=== PATIENT | male | born 1975 | race African-American/Black ===

== ENCOUNTER 2020-07-03 12:50 | Outpatient (REF) | payer OTHER, SELFPAY ==
[2020-07-03 14:34] LABS: Alanine Aminotransferase 29 U/L (0-40); Albumin Level 4.2 g/dL (3.5-5.0); Alkaline Phosphatase 69 U/L (39-117); Anion Gap 11 (12-20); Aspartate Amino Transferase 19 U/L (5-37); Blood Urea Nitrogen 14 mg/dL (9-16); Calcium 9.3 mg/dL (8.4-10.2); Carbon Dioxide 28 mmol/L (22-29); Chloride 106 mmol/L (96-108); Cholesterol 200 mg/dL; Estimated Glomerular Filt Rate > 60; Glucose Fasting 87 mg/dL (60-99); HDL Cholesterol 44 mg/dL; LDL Cholesterol Calculated 138 mg/dl; Potassium 4.7 mmol/L (3.3-5.1); Sodium 140 mmol/L (135-145); Total Protein 7.4 g/dL (6.5-8.0); Triglycerides 90 mg/dL
== END 2020-07-03 12:51 | disposition home or self-care (01) ==
LOC: HO.HMGCLDS 12:50
PROVIDERS: PCP Nurse Practitioner Family; Visit Provider Nurse Practitioner Family
DX: I10 Essential (primary) hypertension (principal)
CPT/HCPCS: 36415; 80053; 80061; 84443

== ENCOUNTER 2020-09-09 11:31 | Outpatient (REF) | payer OTHER, SELFPAY ==
[2020-09-09 14:28] LABS: Alanine Aminotransferase 35 U/L (0-40); Albumin Level 4.2 g/dL (3.5-5.0); Alkaline Phosphatase 64 U/L (39-117); Anion Gap 11 (12-20); Aspartate Amino Transferase 21 U/L (5-37); Bilirubin Total 0.9 mg/dL (0.0-1.0); Blood Urea Nitrogen 12 mg/dL (9-16); Calcium 9.2 mg/dL (8.4-10.2); Carbon Dioxide 26 mmol/L (22-29); Chloride 107 mmol/L (96-108); Cholesterol 185 mg/dL; Estimated Glomerular Filt Rate > 60; Glucose Fasting 92 mg/dL (60-99); HDL Cholesterol 50 mg/dL; LDL Cholesterol Calculated 124 mg/dl; Potassium 4.4 mmol/L (3.3-5.1); Sodium 140 mmol/L (135-145); Total Protein 7.2 g/dL (6.5-8.0); Triglycerides 55 mg/dL
[2020-09-09 14:37] LABS: TSH reflex Free T4 0.63 uIU/mL (0.32-4.0)
== END 2020-09-09 11:32 | disposition home or self-care (01) ==
LOC: HO.HMGCLDS 11:31
PROVIDERS: PCP Nurse Practitioner Family; Visit Provider Nurse Practitioner Family
DX: I10 Essential (primary) hypertension (principal)
CPT/HCPCS: 36415; 80053; 80061; 84443

== ENCOUNTER 2020-10-20 12:54 | Outpatient (REF) | payer OTHER, SELFPAY ==
--- NOTE | ~2020-10-20 | XR_ITS ---
EXAMINATION: XR SHOULDER, RIGHT CLINICAL INFORMATION: Pain right shoulder COMPARISON: None TECHNIQUE: AP external rotation, Grashey, scapular Y, and axillary views of the right shoulder. FINDINGS: There is no visible acute fracture or dislocation. The glenohumeral joint space in AC joint space is maintained normal. No bony erosive changes, loose bodies or soft tissue swelling. XR/XR shoulder RT min 2V IMPRESSION: Unremarkable right shoulder exam.
== END 2020-10-20 12:55 | disposition home or self-care (01) ==
LOC: HO.HMGCX 12:54
PROVIDERS: PCP Nurse Practitioner Family; Visit Provider Nurse Practitioner Family
DX: M25.511 Pain in right shoulder (principal)
CPT/HCPCS: 73030

== ENCOUNTER 2021-01-21 13:00 | Outpatient (RCR) | payer OTHER, SELFPAY ==
--- NOTE | 2020-12-24 16:58 | MHC.PT.EP ---
[facility] [place] Office [place] Office [place] Office [address] Bridget Khan [address] [phone] F: [phone] F: [phone] F: [phone] F: [phone] Physical Therapy Plan of Care Date of Evaluation: Date of Surgery: n/a Diagnosis: Pain in R sh Assessment: Pt is a 45/yo M referred to PT for eval/treat of his R shoulder pain. S/S are consistent w/ shoulder dysfunction resulting in disrupted sleep, decreased ability to perform any overhead activity such as reaching for object in high shelf, decreased ability perform ADLs that require overhead shoulder movements like washing his hair and back, as well as putting undershirt or jumpers. Functional limitations mentioned above are secondary to significantly decreased ROM in capsular pattern, decreased strength, scapular compensation, TTP of post deltoid/post GHJ, and pain. Pt is deemed an appropriate candidate to receive skilled PT to address his physical impairments to improve his functional ability. Frequency and Duration: The patient will be seen 2x/wk for 5 wk Short Term Goals: Initiate HEP I w/ evidence of compliance Increase ABD/flexion ROM by 30 degree; initial 60 deg for abd and flex 120 deg Assisted Goals: increase MMT to at least 4+/5 for flex, ER, and abd; initial 4-/5 for all pt will improve their MDC by 2 increment; initial 68/130 or 52%. pt will be able to wash his hair w/ <5/10 pain; initial 910 Treatment Plan: Modalities to reduce pain, spasms and effusion. Manual therapy to restore motion and function. Therapeutic exercise to improve strength and flexibility. Neuromuscular re-education for posture and balance. Therapeutic activities to return to functional activities of daily living. Electronically signed by: Yoel Davis PT Please sign and return to therapist. Thank you for your referral.
--- NOTE | 2021-08-26 13:41 | MHC.PT.DC ---
[facility] [place] Office [place] Office [place] Office [address] Bridget Khan 140 [facility] [phone] F: [phone] F: [phone] F: [phone] F: [phone] Physical Therapy Discharge Report Diagnosis: Pain in R sh Date of Surgery: n/a Date of Evaluation: 12/24/20 Date of Discharge: 01/21/21 Treatments to Date: 8 Cancellations to Date: No Shows to Date: Discharge Status: Patient Elected to Stop Discharge Summary: 01/21: pt continues to show ROM and strength improvement. Test and measure was collected again to assess pt's improvement (see test/measures). pt states, i'm 95% there, easily. pt is independent with his ther'ex - requires minimal cues. cont his POC for next visit. 01/19: pt filled out SPADI to assess his improvement to which he scored 10/130 (7.7%). Within 7 visit, pt has met all of his goals - pt reports that he has been participating in all of his functional activities. At the moment, he does not experience pain at rest and with movement. pt continues to be an active participant at the clinic. Pt performed self mob and capsular stretches and was challenged with isotonic exercises to which pt responded with appropriate fatigue. for next visit, perform another measurement and cont performing his POC to increase ROM and strengthen his scapular/shoulder muscular strength. Electronically signed by: Please sign and return to therapist. Thank you for your referral.
== END 2021-08-26 13:42 | disposition home or self-care (01) ==
LOC: HO.PTCHIC 13:00
PROVIDERS: PCP Nurse Practitioner Family; Visit Provider Nurse Practitioner Family
DX: M25.511 Pain in right shoulder (principal)
CPT/HCPCS: 97110; 97140; 97161

== ENCOUNTER 2021-01-21 14:03 | Outpatient (REF) | payer OTHER, SELFPAY ==
[2021-01-21 16:49] LABS: Appearance Urine CLEAR; Color Urine YELLOW; Glucose Urine UA NEG (NEG); Leukocyte Esterase Urine NEG (NEG); Nitrite Urine NEG (NEG); Specific Gravity - Urine 1.025 (1.005-1.025); Urine Blood NEG (NEG); Urine Ketones NEG (NEG); Urine Protein NEG (NEG-TRACE)
[2021-01-21 16:57] LABS: Alanine Aminotransferase 33 U/L (0-40); Albumin Level 4.4 g/dL (3.5-5.0); Alkaline Phosphatase 70 U/L (39-117); Anion Gap 15 (12-20); Aspartate Amino Transferase 21 U/L (5-37); Bilirubin Total 1.2 mg/dL (0.0-1.0); Blood Urea Nitrogen 11 mg/dL (9-16); Calcium 9.7 mg/dL (8.4-10.2); Carbon Dioxide 22 mmol/L (22-29); Chloride 107 mmol/L (96-108); Cholesterol 207 mg/dL; Estimated Glomerular Filt Rate > 60; Glucose Fasting 101 mg/dL (60-99); HDL Cholesterol 52 mg/dL; LDL Cholesterol Calculated 137 mg/dl; Potassium 4.4 mmol/L (3.3-5.1); Sodium 140 mmol/L (135-145); Total Protein 7.7 g/dL (6.5-8.0); Triglycerides 90 mg/dL
[2021-01-21 17:17] LABS: TSH reflex Free T4 1.04 uIU/mL (0.32-4.0)
== END 2021-01-21 14:04 | disposition home or self-care (01) ==
LOC: HO.HMGCLDS 14:03
PROVIDERS: PCP Nurse Practitioner Family; Visit Provider Nurse Practitioner Family
DX: I10 Essential (primary) hypertension (principal)
CPT/HCPCS: 36415; 80053; 80061; 81003; 84443

== ENCOUNTER 2021-04-14 11:08 | Outpatient (REF) | payer OTHER, SELFPAY ==
[2021-04-14 14:12] LABS: Appearance Urine CLEAR; Color Urine YELLOW; Glucose Urine UA NEG (NEG); Leukocyte Esterase Urine NEG (NEG); Nitrite Urine NEG (NEG); Specific Gravity - Urine 1.025 (1.005-1.025); Urine Blood NEG (NEG); Urine Ketones NEG (NEG); Urine Protein NEG (NEG-TRACE)
[2021-04-14 14:25] LABS: Alanine Aminotransferase 26 U/L (0-40); Albumin Level 4.1 g/dL (3.5-5.0); Alkaline Phosphatase 70 U/L (39-117); Anion Gap 10 (12-20); Aspartate Amino Transferase 20 U/L (5-37); Bilirubin Total 1.1 mg/dL (0.0-1.0); Blood Urea Nitrogen 10 mg/dL (9-16); Calcium 9.8 mg/dL (8.4-10.2); Carbon Dioxide 27 mmol/L (22-29); Chloride 107 mmol/L (96-108); Cholesterol 183 mg/dL; Estimated Glomerular Filt Rate > 60; Glucose Fasting 98 mg/dL (60-99); HDL Cholesterol 48 mg/dL; LDL Cholesterol Calculated 122 mg/dl; Potassium 4.3 mmol/L (3.3-5.1); Sodium 140 mmol/L (135-145); Total Protein 7.2 g/dL (6.5-8.0); Triglycerides 67 mg/dL
[2021-04-14 14:45] LABS: TSH reflex Free T4 0.96 uIU/mL (0.32-4.0)
[2021-04-19 13:31] LABS: Vitamin D 25-OH, D2 <4 ng/mL; Vitamin D 25-OH, D3 29 ng/mL; Vitamin D 25-OH, Total 29 ng/mL (30-100)
== END 2021-04-14 11:09 | disposition home or self-care (01) ==
LOC: HO.HMGCLDS 11:08
PROVIDERS: PCP Nurse Practitioner Family; Visit Provider Nurse Practitioner Family
DX: I10 Essential (primary) hypertension (principal); E55.9 Vitamin D deficiency, unspecified; M54.50 Low back pain, unspecified
CPT/HCPCS: 36415; 80053; 80061; 81003; 82306; 84443

== ENCOUNTER 2021-09-16 09:11 | Outpatient (REF) | payer OTHER, SELFPAY ==
[2021-09-16 11:15] LABS: MANUAL DIFF FLAG NO
[2021-09-16 11:20] LABS: Basophils Percent Auto 0.5 % (0-2); Eosinophils Absolute Auto 0.2 X10*3/uL (0.0-0.4); Hematocrit 43.5 % (42.0-52.0); Hemoglobin 14.1 g/dl (14.0-18.0); Imm Gran Abs Auto 0.02 X10*3/uL (0.00-0.03); Imm Gran Pct Auto 0.3 % (0.0-0.4); Lymphocytes Absolute Auto 1.8 X10*3/uL (1.2-4.9); Lymphocytes Percent Auto 28.9 % (20-40); Mean Corpuscular HGB Conc 32.4 g/dl (31.0-36.0); Mean Corpuscular Hemoglobin 27.6 pg (27.0-33.0); Mean Corpuscular Volume 85.3 fL (80.0-98.0); Monocytes Absolute Auto 0.6 X10*3/uL (0.1-1.2); Monocytes Percent Auto 9.6 % (2-11); Neutrophils Absolute Auto 3.6 x10*3/uL (2.0-8.3); Neutrophils Percent Auto 57.7 % (45-73); Platelet Count 285 X10*3/uL (160-400); Red Cell Distribution Width 12.6 % (11.0-16.0); White Blood Count 6.3 X10*3/uL (4.8-10.8)
[2021-09-16 11:44] LABS: Appearance Urine CLEAR; Color Urine YELLOW; Glucose Urine UA NEG (NEG); Leukocyte Esterase Urine NEG (NEG); Nitrite Urine NEG (NEG); Specific Gravity - Urine 1.025 (1.005-1.025); Urine Blood NEG (NEG); Urine Ketones NEG (NEG); Urine Protein NEG (NEG-TRACE)
[2021-09-16 11:54] LABS: TSH reflex Free T4 1.13 uIU/mL (0.32-4.0)
[2021-09-16 11:58] LABS: Alanine Aminotransferase 23 U/L (0-40); Albumin Level 3.8 g/dL (3.5-5.0); Alkaline Phosphatase 67 U/L (39-117); Anion Gap 10 (12-20); Aspartate Amino Transferase 18 U/L (5-37); Bilirubin Total 1.4 mg/dL (0.0-1.0); Blood Urea Nitrogen 12 mg/dL (9-16); Calcium 9.3 mg/dL (8.4-10.2); Carbon Dioxide 26 mmol/L (22-29); Chloride 107 mmol/L (96-108); Cholesterol 185 mg/dL; Estimated Glomerular Filt Rate > 60; Glucose Fasting 101 mg/dL (60-99); HDL Cholesterol 47 mg/dL; LDL Cholesterol Calculated 124 mg/dl; Potassium 4.4 mmol/L (3.3-5.1); Sodium 139 mmol/L (135-145); Total Protein 6.9 g/dL (6.5-8.0); Triglycerides 72 mg/dL
== END 2021-09-16 09:12 | disposition home or self-care (01) ==
LOC: HO.HMGCLDS 09:11
PROVIDERS: PCP Nurse Practitioner Family; Visit Provider Nurse Practitioner Family
DX: Z00.00 Encounter for general adult medical examination without abnormal findings (principal)
CPT/HCPCS: 36415; 80053; 80061; 81003; 84443; 85025

== ENCOUNTER → 2021-12-08 14:22 | Outpatient (BNVA) | payer OTHER, SELFPAY | PROVIDERS: PCP Nurse Practitioner Family; Visit Provider Nurse Practitioner | DX: Z01.818 Encounter for other preprocedural examination (principal); G47.30 Sleep apnea, unspecified | CPT/HCPCS: 99202 ==

== ENCOUNTER 2022-05-10 09:29 | Day surgery (SDC) | payer OTHER, SELFPAY ==
[2022-05-05 12:22] VITALS: BMI 34.4
--- NOTE | 2022-05-07 10:51 | HO.ANESPROP2 ---
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) Allergic reaction (Acute) Dyslipidemia (Acute) Shoulder pain (Acute) Physical exam (Acute) Migraines (Acute) COVID-19 (Acute) HTN (hypertension) (Acute) Past Medical History Medical History (Updated 05/10/22 @ 09:55 by Jahaira Mccurdy) Alcohol abuse Anxiety Dyslipidemia GERD (gastroesophageal reflux disease) HTN (hypertension) Migraine without aura Obesity Sleep apnea Tobacco use Vestibular migraine Family History Family History Father Unknown family medical history Mother HTN (hypertension) Mental illness in member of household Surgical History Surgical History History of surgery Social History Social History Housing: Apartment Alcohol intake: never Patient Tobacco Use Status: Former Tobacco user Quit Date: 2020 Tobacco use type: Cigarette Cigarette Packs Per Day: 0.5 Cigarettes Per Day: 10.0 Years Smoked: 20 Smoked in Last 30 Days: No e-Cigarette/Vaping Use: Never Used Second Hand Smoke Exposure: No Use of substances other than those prescribed or required for medical reasons: Yes Substance Use Frequency: Daily Are you DNR?: No Advance Directives: No Advance Directives Information Provided: Yes service: No Current occupational status: employed and unemployed Cognitive needs: No Hearing needs: No Vision needs: No Meds Allergies Allergy/AdvReac Type Severity Reaction Status Date / Time acetaminophen [From Tylox] Allergy Severe Hives Verified 05/10/22 09:43 almond Allergy Severe Hives Verified 05/10/22 09:43 oxycodone [From Tylox] Allergy Severe Hives Verified 05/10/22 09:43 Exam Exam Date and Time: May 07, 2022 1051 Height,Weight and Vital Signs: Height 6 ft 1 in Weight 118.388 kg Pertinent Lab Results Pertinent Lab Results: Laboratory Tests 09/16/21 09/16/21 09:25 09:25 WBC 6.3 Hgb 14.1 Hct 43.5 Plt Count 285 Sodium 139 Potassium 4.4 Chloride 107 Carbon Dioxide 26 BUN 12 Creatinine 1.16 Assessment and Plan Assessment Anesthesia Assessment: Chart Reviewed Documented by User: Irais Barr MD 05/10/22 10:29 [facility] Past Medical History Medical History (Updated 05/10/22 @ 09:55 by Jahaira Mccurdy) Alcohol abuse Anxiety Dyslipidemia GERD (gastroesophageal reflux disease) HTN (hypertension) Migraine without aura Obesity Sleep apnea Tobacco use Vestibular migraine Family History Family History Father Unknown family medical history Mother HTN (hypertension) Mental illness in member of household Family history of problems with anesthesia: No Surgical History Surgical History History of surgery History of Problems with Anesthesia: No Social History Social History Housing: Apartment Alcohol intake: never Patient Tobacco Use Status: Former Tobacco user Quit Date: 2020 Tobacco use type: Cigarette Cigarette Packs Per Day: 0.5 Cigarettes Per Day: 10.0 Years Smoked: 20 Smoked in Last 30 Days: No e-Cigarette/Vaping Use: Never Used Second Hand Smoke Exposure: No Use of substances other than those prescribed or required for medical reasons: Yes Substance Use Frequency: Daily Are you DNR?: No Advance Directives: No Advance Directives Information Provided: Yes service: No Current occupational status: employed and unemployed Cognitive needs: No Hearing needs: No Vision needs: No Meds Allergies Allergy/AdvReac Type Severity Reaction Status Date / Time acetaminophen [From Tylox] Allergy Severe Hives Verified 05/10/22 09:43 almond Allergy Severe Hives Verified 05/10/22 09:43 oxycodone [From Tylox] Allergy Severe Hives Verified 05/10/22 09:43 Exam Airway Mallampati Class: II TM Dist: >3cm Neck ROM: Full Heart: rrr Lungs: cta Assessment and Plan Assessment Anesthesia Assessment: Anesthesia Plan Discussed Final Anesthetic Review Family History of Problems with Anesthesia: No History of Problems with Anesthesia: No NPO: Yes ASA Class: III Final Preanesthetic Review: No Changes in Pt Med Stat, Meds/Allgs Chart Reviewed and Consent Obtained/Reviewed Patient Risk: Intermediate Procedure Risk: Intermediate Anesthetic Plan Anesthetic Plan: MAC: Disposition: Standard PACU
[2022-05-10 09:50] VITALS: BMI 33.9
[2022-05-10 09:53] VITALS: BP 145/85; PULSE 62; RESP 16; TEMP 36.5; O2SAT 98
[2022-05-10] MEDS: Lactated Ringers 1,000 ML 100 ML IVCONT (10:10)
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
--- NOTE | 2022-05-10 10:35 | P.BOP_ITS ---
Brief Operative Note Date of Service: 05/10/22 Pre-op diagnosis: colon cancer screening (1st colonoscopy) Post-op diagnosis: other ( COLON POLYPS, DIVERTICULOSIS, HEMORRHOIDS) Procedure: COLONOSCOPY TILL CECUM WITH BIOPSIES AND SNARE POLYPECTOMY Surgeon: Leanna Wyatt MD Anesthesia: MAC Was an [facility] Psychiatrist used for this Procedure?: Yes [facility] Psychiatrist: Marita Vivas Estimated blood loss (mL): 0 Pathology: other (A. transverse colon polyp B. sigmoid polyp) Condition: stable Disposition: PACU
--- NOTE | 2022-05-10 10:35 | W.PM.OPN ---
Operative Note Operative Note Date of Service: 05/10/22 Narrative: Pre-op diagnosis: colon cancer screening (1st colonoscopy) Post-op diagnosis:?other ( COLON POLYPS, DIVERTICULOSIS, HEMORRHOIDS) Surgeon: Leanna Wyatt MD Anesthesia:?MAC COLONOSCOPY TILL CECUM WITH BIOPSIES AND SNARE POLYPECTOMY Consent: Indications for the procedure and potential complications of bleeding, perforation, reaction to medications and missed diagnosis were discussed with the patient and informed consent was obtained. Instrument: Olympus PCF H 190 L variable stiffness pediatric colonoscope Monitoring: Vital signs and clinical assessment, intermittent blood pressure monitoring, continuous EKG monitoring, Pulse oximetry and Carbon Dioxide monitoring were done throughout the procedure. Colon withdrawl time was 25 minutes. Procedure: The patient was placed in the left lateral decubitis position and pre-procedure medications were administered. After a digital rectal examination of the ano-rectum, the video colonoscope was inserted into the rectum and advanced through the colon to the cecum. The colonoscope was slowly withdrawn in a retrograde panoramic fashion and the colon mucosa was carefully examined including a retroflexed view of the rectum. Findings and interventions are described below. Procedure Difficulty: colon was long and tortuous and there was some loop formation. no maneuvers were required. Findings: Terminal Ileum: Not evaluated Cecum: Normal Ascending Colon: Normal Transverse Colon: A 3-4 mm sessile polyp - removed with a cold bx Descending Colon: Normal Sigmoid Colon: A 10 mm sessile polyp removed with a cold snare. Moderate diverticulosis Rectum: Normal Ano-rectum: Moderate internal hemorrhoids Colon preparation: Good in the left colon and fair in the right and transverse colon due to a thin layer of adherent stool which could not be removed despite copious irrigation. No large lesions seen, and smaller polyps could be missed. Impression and Post Procedure Diagnosis: Colonoscopy Findings: Two small to medium sized polyps removed Moderate diverticulosis seen in the sigmoid colon Moderate hemorrhoids on retroflexed exam. Plan: Await pathology results Patient has an appointment on 05/25/22 in the GI Clinic with Melissa Philip NP. Repeat Colonoscopy interval based on path results - in 3 years if polyps are adenomatous and due to suboptimal prep in the right and transverse colon (pt needs dulcolax two tab daily x 2 days prior to colon appt and an adult colonoscope for future colonoscopies). Above findings were reviewed with the patient and colon polyps and diverticulosis handouts were given in the discharge area
[2022-05-10 11:18] VITALS: BP 137/79; PULSE 52; RESP 16; TEMP 36.6; O2SAT 98
[2022-05-10 11:33] VITALS: BP 143/97; PULSE 52; RESP 16; TEMP 36.6; O2SAT 98
== END 2022-05-10 11:59 | disposition home or self-care (01) ==
PROVIDERS: PCP Nurse Practitioner Family; Visit Provider Internal Medicine Gastroenterology
PROC: 0DJD8ZZ Inspection of Lower Intestinal Tract, Via Natural or Artificial Opening Endoscopic (ICD-10-PCS; CPT 45378; principal; 2022-05-10 10:20)
DX: Z12.11 Encounter for screening for malignant neoplasm of colon (principal); D12.3 Benign neoplasm of transverse colon; D12.5 Benign neoplasm of sigmoid colon; K57.30 Diverticulosis of large intestine without perforation or abscess without bleeding; K64.8 Other hemorrhoids; I10 Essential (primary) hypertension; E78.00 Pure hypercholesterolemia, unspecified; G47.33 Obstructive sleep apnea (adult) (pediatric); G43.909 Migraine, unspecified, not intractable, without status migrainosus; F10.10 Alcohol abuse, uncomplicated; Z87.891 Personal history of nicotine dependence
CPT/HCPCS: 45385; 45380; 88305

== ENCOUNTER → 2022-05-25 11:12 | Outpatient (BNVA) | payer OTHER, SELFPAY | PROVIDERS: PCP Nurse Practitioner Family; Visit Provider Nurse Practitioner | DX: K57.30 Diverticulosis of large intestine without perforation or abscess without bleeding (principal); D12.3 Benign neoplasm of transverse colon; D12.5 Benign neoplasm of sigmoid colon; K64.8 Other hemorrhoids; Z98.890 Other specified postprocedural states | CPT/HCPCS: 99212 ==

== ENCOUNTER 2022-09-27 10:12 | Outpatient (REF) | payer OTHER, SELFPAY ==
[2022-09-27 11:15] LABS: MANUAL DIFF FLAG NO
[2022-09-27 11:29] LABS: Appearance Urine Clear; Color Urine Yellow; Glucose Urine UA Negative (Negative); Leukocyte Esterase Urine Negative (Negative); Nitrite Urine Negative (Negative); PH 6.5 (5.0-9.0); Specific Gravity - Urine 1.025 (1.005-1.025); Urine Blood Negative (Negative); Urine Ketones Negative (Negative); Urine Protein Negative (Neg-Trace)
[2022-09-27 11:32] LABS: Basophils Percent Auto 0.3 % (0-2); Eosinophils Absolute Auto 0.2 X10*3/uL (0.0-0.4); Eosinophils Percent Auto 2.5 % (0-4); Hematocrit 47.1 % (42.0-52.0); Hemoglobin 15.1 g/dl (14.0-18.0); Imm Gran Abs Auto 0.02 X10*3/uL (0.00-0.03); Imm Gran Pct Auto 0.3 % (0.0-0.4); Lymphocytes Absolute Auto 1.4 X10*3/uL (1.2-4.9); Lymphocytes Percent Auto 23.4 % (20-40); Mean Corpuscular HGB Conc 32.1 g/dl (31.0-36.0); Mean Corpuscular Hemoglobin 27.1 pg (27.0-33.0); Mean Corpuscular Volume 84.4 fL (80.0-98.0); Monocytes Absolute Auto 0.6 X10*3/uL (0.1-1.2); Monocytes Percent Auto 9.5 % (2-11); Neutrophils Absolute Auto 3.8 x10*3/uL (2.0-8.3); Platelet Count 273 X10*3/uL (160-400); Red Blood Count 5.58 X10*6/uL (4.60-5.80); Red Cell Distribution Width 12.5 % (11.0-16.0); White Blood Count 5.9 X10*3/uL (4.8-10.8)
[2022-09-27 12:10] LABS: Alanine Aminotransferase 25 U/L (0-40); Albumin Level 4.4 g/dL (3.5-5.0); Alkaline Phosphatase 74 U/L (39-117); Anion Gap 12 (12-20); Aspartate Amino Transferase 20 U/L (5-37); Bilirubin Total 1.3 mg/dL (0.0-1.0); Blood Urea Nitrogen 14 mg/dL (9-16); Calcium 9.9 mg/dL (8.4-10.2); Carbon Dioxide 29 mmol/L (22-29); Chloride 104 mmol/L (96-108); Cholesterol 204 mg/dL; Estimated Glomerular Filt Rate > 60; Glucose Fasting 99 mg/dL (60-99); HDL Cholesterol 49 mg/dL; LDL Cholesterol Calculated 141 mg/dl; Potassium 4.4 mmol/L (3.3-5.1); Sodium 141 mmol/L (135-145); TSH reflex Free T4 0.55 uIU/mL (0.32-4.0); Total Protein 7.8 g/dL (6.5-8.0); Triglycerides 73 mg/dL
== END 2022-09-27 10:13 | disposition home or self-care (01) ==
LOC: HO.HMGCLDS 10:12
PROVIDERS: PCP Nurse Practitioner Family; Visit Provider Nurse Practitioner Family
DX: Z00.00 Encounter for general adult medical examination without abnormal findings (principal)
CPT/HCPCS: 36415; 80053; 80061; 81003; 84443; 85025

== ENCOUNTER 2022-12-23 09:31 | Outpatient (AMB) | payer OTHER, SELFPAY ==
--- NOTE | 2022-12-23 09:35 | MHC.PC.OV ---
Vital Signs 12/23/22 09:36 12/23/22 11:34 Height 6 ft Weight 261 lb 2 oz BMI 35.4 BP 118/84 Blood Pressure Location Rt brachial Position Sitting Pulse 47 L 64 Pulse Source Pulse Oximeter Pulse Oximetry (%) 97 Oxygen Delivery Method Room Air Intake Visit Reasons: 3m follow up HTN Allergies acetaminophen [From Tylox] Allergy (Severe, Verified 12/23/22 09:37) Hives almond Allergy (Severe, Verified 12/23/22 09:37) Hives oxycodone [From Tylox] Allergy (Severe, Verified 12/23/22 09:37) Hives lisinopril Adverse Reaction (Severe, Verified 12/23/22 09:37) Angioedema amlodipine Adverse Reaction (Intermediate, Verified 12/23/22 09:37) Chest Pain Tobacco use date assessed: 12/23/22 Dental Screening Dental Screen Date: 12/23/22 Did you have a dental visit in the last 12 months?: Yes Did you have a dental problem in the last 6 months where you did not have access to dental care?: No Was dental information given to patient?: Patient has dentist HPI 3m follow up HTN HPI Details HTN: Blood pressure is stable, managed with hydrochlorothiazide 12.5mg. Pt reports excessive cardio and weight training exercises, bradycardia noted, BP stable. Denies chest pain, shortness of breath, headache, dizziness, and blurred vision. PFSH Medical History Alcohol abuse Anxiety Dyslipidemia GERD (gastroesophageal reflux disease) HTN (hypertension) Migraine without aura Obesity Sleep apnea Tobacco use Vestibular migraine Surgical History H/O colonoscopy History of surgery Family History Father Unknown family medical history Mother HTN (hypertension) Mental illness in member of household Social History Housing: Apartment Alcohol intake: never Patient Tobacco Use Status: Former Tobacco user Quit Date: 2020 Tobacco use type: Cigarette Cigarette Packs Per Day: 0.5 Cigarettes Per Day: 10.0 Years Smoked: 20 Packs Per Year: 10 Packs per year/per ci.00 e-Cigarette/Vaping Use: Never Used Second Hand Smoke Exposure: No service: No Current occupational status: employed and unemployed Cognitive needs: No Hearing needs: No Vision needs: No Questionnaire Thrive Questionnaire Date Thrive assessed: 09/13/22 SREE-7 AMB Questionnaire SREE-7 Date SREE - 7 assessed: 09/13/22 Source: Developed by Drs. Zack Pereira, Rosa Maria Baumann, Sheng Blackmon and colleagues, with an educational jason from [employer]. Review of Systems Const Reports as per HPI Physical exam (Primary Care) Vital Signs: Last Vital Signs Pulse 47 L 12/23/22 09:36 BP 118/84 12/23/22 09:36 Pulse Ox 97 12/23/22 09:36 Oxygen Delivery Method Room Air 12/23/22 09:36 BMI result Body Mass Index 35.4 Tobacco/Smoking Status: Tobacco use Status Tobacco use date assessed 12/23/22 12/23/22 09:40 Patient Tobacco Use Status Former Tobacco user 12/23/22 09:40 Tobacco use type Cigarette 12/23/22 09:40 e-Cigarette/Vaping Use Never Used 12/23/22 09:40 Thrive Assessment: Date of Thrive Assessment Date Thrive assessed 09/13/22 12/23/22 09:40 Const General: cooperative Nutritional Appearance: obese Orientation/consciousness: patient oriented x3 Resp Effort & Inspection: normal respiratory effort Auscultation: clear to auscultation bilaterally Cardio Rate: regular rate Rhythm: regular rhythm Heart sounds: S1 normal heart sound present and S2 normal heart sound present Neuro General: patient oriented x3 Extrem Right lower extremity: no edema Left lower extremity: no edema Psych Appearance: grossly normal Mental Status: mental status grossly normal Speech and movement: Normal speech and movement present Affect: normal affect Attitude: cooperative Thought process: Normal thought process present Thought content: Normal thought content present Insight: Good insight present (Psych) Judgement: Good judgement present (Psych) Assessment and Plan Assessment & Plan (1) HTN (hypertension): Code(s): I10 - Essential (primary) hypertension Qualifiers: Hypertension type: essential hypertension Qualified Code(s): I10 - Essential (primary) hypertension Plan: Labs ordered Plan The patient agreed to the use of a medical staff services coordinator for this encounter. Scribed for NORMA Kingsley- by Beatrice Mcgrath, medical staff services coordinator, on 12/23/2022 at 09:45 EST. Orders: Orders Comprehensive [place]. Panel Fast Today I10 - Essential (primary) hypertension Lipid Panel Today I10 - Essential (primary) hypertension TSH reflex Free T4 Today I10 - Essential (primary) hypertension Complete Blood Count Auto Diff Today I10 - Essential (primary) hypertension Coding Level of Care Code Est Pt Level 3 (24133) Diagnoses HTN (hypertension) I10 Hypertension type: essential hypertension
[2022-12-23 09:36] VITALS: BP 118/84; PULSE 47; O2SAT 97; BMI 35.4
[2022-12-23 11:34] VITALS: PULSE 64
== END 2022-12-23 11:23 | disposition home or self-care (01) ==
LOC: HO.HMGC 09:31
PROVIDERS: PCP Nurse Practitioner Family; Visit Provider Nurse Practitioner Family
DX: I10 Essential (primary) hypertension (principal)
CPT/HCPCS: 99213

== ENCOUNTER 2023-02-01 13:54 | Outpatient (AMB) | payer OTHER, SELFPAY ==
--- NOTE | 2023-02-01 15:15 | MHC.OFFWIV ---
Intake Vital Signs 02/01/23 15:16 Weight 265 lb BP 130/80 Blood Pressure Location Rt brachial Position Sitting Pulse 76 Pulse Source Pulse Oximeter Pulse Oximetry (%) 98 Oxygen Delivery Method Room Air Intake Visit Reasons: Est/hemorrhoids issues Intake Note: Patient here for blood in stool and little sharp pains in stomach that started yesterday. Patient Tobacco Use Status: Former Tobacco user Quit Date: 2020 Allergies acetaminophen [From Tylox] Allergy (Severe, Verified 02/01/23 16:07) Hives almond Allergy (Severe, Verified 02/01/23 16:07) Hives oxycodone [From Tylox] Allergy (Severe, Verified 02/01/23 16:07) Hives lisinopril Adverse Reaction (Severe, Verified 02/01/23 16:07) Angioedema amlodipine Adverse Reaction (Intermediate, Verified 02/01/23 16:07) Chest Pain Medication List - Last Reconciled 02/01/23 by Cj Mann MD hydrochlorothiazide 12.5 mg PO DAILY hydrocortisone acetate (Anusol-HC) 25 mg MT BEDTIME Do you need a note to return to daycare/school/sports/work: No HPI Est/hemorrhoids issues HPI Details 47-year-old male presents to the office for a sick visit. Patient is reporting that he is passing bright lead blood from the rectum. It is mixed with stool. Patient has history of hemorrhoids in the past. He has had colonoscopy recently and 2 polyps were removed. He has been diagnosed with hemorrhoids. [facility] Medical History Alcohol abuse Anxiety Dyslipidemia GERD (gastroesophageal reflux disease) HTN (hypertension) Migraine without aura Obesity Sleep apnea Tobacco use Vestibular migraine Surgical History H/O colonoscopy History of surgery Family History Father Unknown family medical history Mother HTN (hypertension) Mental illness in member of household Social History Housing: Apartment Alcohol intake: never Patient Tobacco Use Status: Former Tobacco user Quit Date: 2020 Tobacco use type: Cigarette Cigarette Packs Per Day: 0.5 Cigarettes Per Day: 10.0 Years Smoked: 20 e-Cigarette/Vaping Use: Never Used Second Hand Smoke Exposure: No service: No Current occupational status: employed and unemployed Cognitive needs: No Hearing needs: No Vision needs: No Physical Exam Vital Signs: Last Vital Signs Pulse 76 02/01/23 15:16 BP 130/80 02/01/23 15:16 Pulse Ox 98 02/01/23 15:16 Oxygen Delivery Method Room Air 02/01/23 15:16 Const General: cooperative, healthy appearing and comfortable Assessment & Plan Assessment & Plan (1) Hemorrhoids: Code(s): K64.9 - Unspecified hemorrhoids Plan: Suppositories prescribed. If symptoms persist to follow-up here. Medications: New hydrocortisone acetate (Anusol-HC) 25 mg MT BEDTIME 12 ea 0RF Coding Level of Care Code Est Pt Level 3 (09039) Diagnoses Hemorrhoids K64.9
[2023-02-01 15:16] VITALS: BP 130/80; PULSE 76; O2SAT 98
== END 2023-02-01 16:23 | disposition home or self-care (01) ==
PROVIDERS: PCP Nurse Practitioner Family; Visit Provider Internal Medicine
DX: K64.9 Unspecified hemorrhoids (principal)
CPT/HCPCS: 99213

== ENCOUNTER 2023-05-18 11:49 | Outpatient (AMB) | payer OTHER, SELFPAY ==
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
[2023-05-18 11:55] VITALS: BP 130/80; PULSE 64; TEMP 37.1; O2SAT 97; BMI 35.4
== END 2023-05-18 13:01 | disposition home or self-care (01) ==
PROVIDERS: PCP Nurse Practitioner Family; Visit Provider Internal Medicine
DX: I10 Essential (primary) hypertension (principal); R51.9 Headache, unspecified
CPT/HCPCS: 99214

== ENCOUNTER 2023-05-18 12:19 | Outpatient (REF) | payer OTHER, SELFPAY ==
[2023-05-18 13:44] LABS: MANUAL DIFF FLAG NO
[2023-05-18 14:07] LABS: Basophils Percent Auto 0.2 % (0-2); Eosinophils Absolute Auto 0.2 X10*3/uL (0.0-0.4); Hematocrit 48.4 % (42.0-52.0); Hemoglobin 15.7 g/dl (14.0-18.0); Imm Gran Abs Auto 0.03 X10*3/uL (0.00-0.03); Imm Gran Pct Auto 0.4 % (0.0-0.4); Lymphocytes Absolute Auto 1.8 X10*3/uL (1.2-4.9); Lymphocytes Percent Auto 20.9 % (20-40); Mean Corpuscular HGB Conc 32.4 g/dl (31.0-36.0); Mean Corpuscular Hemoglobin 27.5 pg (27.0-33.0); Mean Corpuscular Volume 84.8 fL (80.0-98.0); Mean Platelet Volume 11.4 fL (9.4-12.4); Monocytes Absolute Auto 0.7 X10*3/uL (0.1-1.2); Monocytes Percent Auto 7.8 % (2-11); Neutrophils Absolute Auto 5.8 x10*3/uL (2.0-8.3); Neutrophils Percent Auto 68.7 % (45-73); Platelet Count 275 X10*3/uL (160-400); Red Blood Count 5.71 X10*6/uL (4.60-5.80); Red Cell Distribution Width 12.3 % (11.0-16.0); White Blood Count 8.5 X10*3/uL (4.8-10.8)
[2023-05-18 14:12] LABS: Alanine Aminotransferase 30 U/L (0-40); Albumin Level 4.4 g/dL (3.5-5.0); Alkaline Phosphatase 73 U/L (39-117); Anion Gap 12 (12-20); Aspartate Amino Transferase 21 U/L (5-37); Bilirubin Total 1.2 mg/dL (0.0-1.0); Blood Urea Nitrogen 13 mg/dL (9-16); Calcium 9.8 mg/dL (8.4-10.2); Carbon Dioxide 27 mmol/L (22-29); Chloride 102 mmol/L (96-108); Estimated Glomerular Filt Rate 59; Glucose Random 97 mg/dL (60-115); Potassium 3.9 mmol/L (3.3-5.1); Sodium 137 mmol/L (135-145); Total Protein 8.4 g/dL (6.5-8.0)
[2023-05-20 10:44] LABS: LDL Cholesterol Direct 161 mg/dL (<100)
== END 2023-05-18 12:20 | disposition home or self-care (01) ==
LOC: HO.HMGCLDS 12:19
PROVIDERS: PCP Nurse Practitioner Family; Visit Provider Internal Medicine
DX: I10 Essential (primary) hypertension (principal)
CPT/HCPCS: 36415; 80053; 83721; 85025

== ENCOUNTER 2023-07-28 12:17 | Outpatient (REF) | payer OTHER, SELFPAY ==
[2023-07-28 12:57] LABS: MANUAL DIFF FLAG NO
[2023-07-28 13:09] LABS: Basophils Percent Auto 0.3 % (0-2); Eosinophils Absolute Auto 0.1 X10*3/uL (0.0-0.4); Eosinophils Percent Auto 1.7 % (0-4); Hematocrit 47.8 % (42.0-52.0); Hemoglobin 15.6 g/dl (14.0-18.0); Imm Gran Abs Auto 0.03 X10*3/uL (0.00-0.03); Imm Gran Pct Auto 0.5 % (0.0-0.4); Lymphocytes Absolute Auto 1.6 X10*3/uL (1.2-4.9); Lymphocytes Percent Auto 24.5 % (20-40); Mean Corpuscular HGB Conc 32.6 g/dl (31.0-36.0); Mean Corpuscular Hemoglobin 27.5 pg (27.0-33.0); Mean Corpuscular Volume 84.2 fL (80.0-98.0); Mean Platelet Volume 10.7 fL (9.4-12.4); Monocytes Absolute Auto 0.5 X10*3/uL (0.1-1.2); Monocytes Percent Auto 8.2 % (2-11); Neutrophils Absolute Auto 4.3 x10*3/uL (2.0-8.3); Neutrophils Percent Auto 64.8 % (45-73); Platelet Count 330 X10*3/uL (160-400); Red Blood Count 5.68 X10*6/uL (4.60-5.80); Red Cell Distribution Width 12.3 % (11.0-16.0); White Blood Count 6.6 X10*3/uL (4.8-10.8)
[2023-07-28 13:49] LABS: Alanine Aminotransferase 26 U/L (0-40); Albumin Level 4.1 g/dL (3.5-5.0); Alkaline Phosphatase 76 U/L (39-117); Anion Gap 9 (12-20); Aspartate Amino Transferase 20 U/L (5-37); Blood Urea Nitrogen 11 mg/dL (9-16); Calcium 9.5 mg/dL (8.4-10.2); Carbon Dioxide 31 mmol/L (22-29); Chloride 103 mmol/L (96-108); Cholesterol 200 mg/dL (<200); Estimated Glomerular Filt Rate > 60; Glucose Fasting 95 mg/dL (60-99); HDL Cholesterol 55 mg/dL (>40); LDL Cholesterol Calculated 130 mg/dL (<100); Potassium 3.7 mmol/L (3.3-5.1); Sodium 139 mmol/L (135-145); Triglycerides 76 mg/dL (<150)
[2023-07-28 14:07] LABS: TSH reflex Free T4 0.81 uIU/mL (0.32-4.0)
== END 2023-07-28 12:18 | disposition home or self-care (01) ==
LOC: HO.HMGCLDS 12:17
PROVIDERS: PCP Nurse Practitioner Family; Visit Provider Nurse Practitioner Family
DX: E78.5 Hyperlipidemia, unspecified (principal); I10 Essential (primary) hypertension
CPT/HCPCS: 36415; 80053; 80061; 84443; 85025

== ENCOUNTER 2023-10-11 15:07 | Outpatient (AMB) | payer OTHER, SELFPAY ==
[2023-10-11 15:09] VITALS: BP 128/80; PULSE 70; TEMP 36.8; O2SAT 97; BMI 35.4
--- NOTE | 2023-10-11 15:09 | AM.OFFWIN_ITS ---
Intake Vital Signs 10/11/23 15:09 Height 6 ft Weight 261 lb BMI 35.4 BP 128/80 Blood Pressure Location Rt brachial Position Sitting Pulse 70 Pulse Source Pulse Oximeter Temp 98.2 F Temp Source Oral Pulse Oximetry (%) 97 Oxygen Delivery Method Room Air Intake Visit Reasons: EP ?ear infection, bilateral Intake Note: pt is here for ear infection bilateral, pt states he feels his ears are blocked Patient Tobacco Use Status: Former Tobacco user Allergies acetaminophen [From Tylox] Allergy (Severe, Verified 10/11/23 15:10) Hives almond Allergy (Severe, Verified 10/11/23 15:10) Hives oxycodone [From Tylox] Allergy (Severe, Verified 10/11/23 15:10) Hives lisinopril Adverse Reaction (Severe, Verified 10/11/23 15:10) Angioedema amlodipine Adverse Reaction (Intermediate, Verified 10/11/23 15:10) Chest Pain Do you need a note to return to daycare/school/sports/work: No HPI HPI Comments History of Present Illness Details Patient is a 48yo M who presents with bilateral ear blockage x few months No drainage from ears No pain 0/10 He has not tried anything He states 1 year ago he had a beatle in L ear and it got out but feels like issues since No cold symptoms PFSH Medical History Alcohol abuse Anxiety Migraine without aura Obesity HTN (hypertension) Vestibular migraine GERD (gastroesophageal reflux disease) Dyslipidemia Sleep apnea Tobacco use Surgical History H/O colonoscopy History of surgery Family History Father Unknown family medical history Mother HTN (hypertension) Mental illness in member of household Social History Housing: Apartment Alcohol intake: never Patient Tobacco Use Status: Former Tobacco user Tobacco use type: Cigarette Cigarette Packs Per Day: 0.5 Cigarettes Per Day: 10.0 Years Smoked: 20 e-Cigarette/Vaping Use: Never Used Second Hand Smoke Exposure: No service: No Current occupational status: employed and unemployed Cognitive needs: No Hearing needs: No Vision needs: No Review of Systems Const Denies chills and Denies fever(s) ENT Denies ear discharge, Denies otalgia (but + blocked hearing intermittently bilaterally), Denies nasal discharge, Denies sinus pressure and Denies sore throat Resp Denies cough Physical Exam Vital Signs: Last Vital Signs Temp 98.2 F 10/11/23 15:09 Pulse 70 10/11/23 15:09 BP 128/80 10/11/23 15:09 Pulse Ox 97 10/11/23 15:09 Oxygen Delivery Method Room Air 10/11/23 15:09 BMI result Body Mass Index 35.4 General: Non-toxic, NAD. Speaking full sentences. Skin: Warm dry throughout Eye: EOMI HENT: Airway patent. Uvula midline. No pharyngeal erythema or edema. No PEWTER FINISHER. Bilateral canals clear with minimal cerumen. TM non-erythematous, non-bulging. No TM perforation or hemotympanum noted. Respiratory: No respiratory distress MSK: Full ROM extremities. Neurology: A/O. No aphasia or facial droop. Gait without abnormality Psych: Good mood and affect Assessment & Plan Assessment & Plan (1) Decreased hearing: Code(s): H91.90 - Unspecified hearing loss, unspecified ear Qualifiers: Laterality: bilateral Qualified Code(s): H91.93 - Unspecified hearing loss, bilateral Plan: Patient seen and evaluated. No OM or OE No FB Verbal consent obtained and curette used to remove the small amount of cerumen there was bilaterally. No complaints and pt tolerated well. TMs without infection, perforation or abnormality ENT follow up referral given Patient gave verbal understanding and had no additional questions or concerns at time of discharge All questions answered Orders: Referrals Ear/Nose/Throat Referral H91.90 - Unspecified hearing loss, unspecified ear Coding Level of Care Code Est Pt Level 3 (48848) Diagnoses Decreased hearing of both ears H91.93 Laterality: bilateral
== END 2023-10-11 16:22 | disposition home or self-care (01) ==
PROVIDERS: PCP Nurse Practitioner Family; Visit Provider Physician Assistant
DX: H91.93 Unspecified hearing loss, bilateral (principal)
CPT/HCPCS: 99213

== ENCOUNTER 2023-11-11 12:06 | Outpatient (REF) | payer OTHER, SELFPAY ==
[2023-11-11 20:25] LABS: Alanine Aminotransferase 38 U/L (0-40); Albumin Level 4.5 g/dL (3.5-5.0); Alkaline Phosphatase 75 U/L (39-117); Anion Gap 15 (12-20); Aspartate Amino Transferase 28 U/L (5-37); Blood Urea Nitrogen 11 mg/dL (9-16); Carbon Dioxide 26 mmol/L (22-29); Chloride 103 mmol/L (96-108); Cholesterol 207 mg/dL (<200); Estimated Glomerular Filt Rate > 60; Glucose Fasting 101 mg/dL (60-99); HDL Cholesterol 52 mg/dL (>40); LDL Cholesterol Calculated 135 mg/dL (<100); Sodium 140 mmol/L (135-145); Total Protein 8.2 g/dL (6.5-8.0); Triglycerides 101 mg/dL (<150)
== END 2023-11-11 12:07 | disposition home or self-care (01) ==
LOC: HO.HMGCLDS 12:06
PROVIDERS: PCP Nurse Practitioner Family; Visit Provider Nurse Practitioner Family
DX: I10 Essential (primary) hypertension (principal)
CPT/HCPCS: 36415; 80053; 80061

== ENCOUNTER 2023-11-14 12:59 | Outpatient (AMB) | payer OTHER, SELFPAY ==
[2023-11-14 13:02] VITALS: BP 126/74; PULSE 55; O2SAT 96; BMI 34.7
--- NOTE | 2023-11-14 13:02 | MHC.PC.OV ---
Vital Signs 11/14/23 13:02 Height 6 ft Weight 256 lb 4 oz BMI 34.7 BP 126/74 Blood Pressure Location Lt brachial Position Sitting Pulse 55 Pulse Source Pulse Oximeter Pulse Oximetry (%) 96 Oxygen Delivery Method Room Air Intake Visit Reasons: PE Allergies acetaminophen [From Tylox] Allergy (Severe, Verified 11/14/23 13:22) Hives almond Allergy (Severe, Verified 11/14/23 13:22) Hives oxycodone [From Tylox] Allergy (Severe, Verified 11/14/23 13:22) Hives lisinopril Adverse Reaction (Severe, Verified 11/14/23 13:22) Angioedema amlodipine Adverse Reaction (Intermediate, Verified 11/14/23 13:22) Chest Pain Medication List - Last Reconciled 11/14/23 by AMIE Hall hydrochlorothiazide 25 mg PO DAILY hydrochlorothiazide 25 mg PO DAILY 90 days Tobacco use date assessed: 11/14/23 Dental Screening Dental Screen Date: 11/14/23 Did you have a dental visit in the last 12 months?: Yes Did you have a dental problem in the last 6 months where you did not have access to dental care?: No Was dental information given to patient?: Patient has dentist HPI PE HPI Details Pt is here for a PE. Will order labs. Colon screen is up to date. Due for PSA in the near future, will order. Denies dribbling with urination, weak stream, and frequent nocturia. Pt c/o leg cramps. He reports that these occur mostly during the day. Recommended increased fluid/electrolyte intake. PFSH Medical History Alcohol abuse Anxiety Migraine without aura Obesity HTN (hypertension) Vestibular migraine GERD (gastroesophageal reflux disease) Dyslipidemia Sleep apnea Tobacco use Surgical History H/O colonoscopy History of surgery Family History Father Unknown family medical history Mother HTN (hypertension) Mental illness in member of household Social History Housing: Apartment Alcohol intake: never Patient Tobacco Use Status: Former Tobacco user Tobacco use type: Cigarette Cigarette Packs Per Day: 0.5 Cigarettes Per Day: 10.0 Years Smoked: 20 e-Cigarette/Vaping Use: Never Used Second Hand Smoke Exposure: No service: No Current occupational status: employed and unemployed Cognitive needs: No Hearing needs: No Vision needs: No Questionnaire PHQ-9 Over the last 2 weeks, how often have you been bothered by any of the following problems? 1. Little interest or pleasure in doing things: not at all 2. Feeling down, depressed, or hopeless: not at all 3. Trouble falling or staying asleep, or sleeping too much: not at all 4. Feeling tired or having little energy: not at all 5. Poor appetite or overeating: not at all 6. Feeling bad about yourself - or that you are a failure or have let yourself or your family down: not at all 7. Trouble concentrating on things, such as reading the newspaper or watching television: not at all 8. Moving or speaking so slowly that other people could have noticed. Or the opposite - being so fidgety or restless that you have been moving around a lot more than usual: not at all 9. Thoughts that you would be better off or of hurting yourself in some way: not at all Total score: 0 Depression Screening Interpretation: Negative Depression Screening Done: Yes 47030 - PHQ-9 Billing: Yes Source: Developed by Drs. Zack Pereira, Rosa Maria Baumann, Sheng Blackmon and colleagues, with an educational jason from [employer]. Thrive Questionnaire Date Thrive assessed: 11/14/23 I am a: Patient What is your living situation today?: I have a steady place to live Within the past 12 months, did the food you bought not last and you didn't have the money to get more?: Sometimes True Within the past 12 months, did you worry whether your food would run out before you got money to buy more?: Sometimes True Do you have trouble paying for medicines?: Yes Do you have trouble getting transportation to medical appointments?: No Do you have trouble paying your heating and electricity bill?: I choose not to answer this question Do you have trouble taking care of your child, family member or friend?: I choose not to answer this question Do you have trouble with day-to-day activities such as bathing, preparing meals, shopping, managing finances, etc.?: No Are you currently unemployed and looking for a job?: Yes Are you interested in more education?: Yes Please select the resources that you would like help with: Food Currently or been in a relationship where the following occur: I choose not to answer THRIVE Score: 2 AUDIT C Alcohol Use Questionnaire (AUDIT-C) 1. How often do you have a drink containing alcohol?: 2-4 times a month 2. How many drinks containing alcohol do you have on a typical day when you are drinking?: 1 or 2 3. How often do you have six or more drinks on one occasion?: Never Total Score: 2 Score Reviewed/Action Taken: Yes SREE-7 AMB Questionnaire SREE-7 Date SREE - 7 assessed: 11/14/23 Feeling nervous, anxious, or on edge: 1 = Several days Not being able to stop or control worryin = Several days Worrying too much about different things: 1 = Several days Trouble relaxin = Not at all Being so restless that it is hard to sit still: 0 = Not at all Becoming easily annoyed or irritable: 1 = Several days Feeling afraid as if something awful might happen: 1 = Several days Total SREE-7 score (0-4 normal; 5-9 mild; 10-14 moderate; 15-21 severe): 5 Source: Developed by Drs. Zack Pereira, Rosa Maria Baumann, Sheng Blackmon and colleagues, with an educational jason from [employer]. SREE-7 Assessment Billing SREE-7 Assessment Tool: SREE-7 Assessment 37192 Review of Systems Const Denies chills and Denies fever(s) Eyes Denies blurry vision ENT Denies vertigo, Denies dizziness and Denies sore throat Card Denies chest pain at rest, Denies chest pain with activity, Denies diaphoresis, Denies dyspnea and Denies dyspnea on exertion Resp Denies cough, Denies dyspnea, Denies dyspnea on exertion and Denies wheezing GI Denies abdominal pain, Denies melena, Denies hematochezia, Denies constipation, Denies diarrhea and Denies loose stools Denies hematuria Musc Denies numbness and Denies tingling Skin/Breast Denies lesions Neuro Denies vertigo, Denies dizziness, Denies numbness and Denies tingling Psych Denies anxiety, Denies depression, Denies homicidal ideation, Denies suicidal ideation and Denies other (substance abuse) Aller/Immun Denies wheezing Physical exam (Primary Care) Vital Signs: Last Vital Signs Pulse 55 11/14/23 13:02 BP 126/74 11/14/23 13:02 Pulse Ox 96 11/14/23 13:02 Oxygen Delivery Method Room Air 11/14/23 13:02 BMI result Body Mass Index 34.7 Tobacco/Smoking Status: Tobacco use Status Tobacco use date assessed 11/14/23 11/14/23 13:04 Patient Tobacco Use Status Former Tobacco user 11/14/23 13:04 Tobacco use type Cigarette 11/14/23 13:04 e-Cigarette/Vaping Use Never Used 11/14/23 13:04 PHQ-9: PHQ-9 Score PHQ-9: Total score 0 11/14/23 13:04 Depression Screening Interpretation: Negative Thrive Assessment: Date of Thrive Assessment Date Thrive assessed 11/14/23 11/14/23 13:04 Currently or been in a relationship where the following occur: I choose not to answer Const General: cooperative Nutritional Appearance: well nourished Orientation/consciousness: patient oriented x3 HENMT Head: Yes normal to inspection, Yes normocephalic and Yes atraumatic Ears: TM's normal bilaterally Eyes General: appearance normal, both eyes and all related structures Alignment and Position: alignment normal and position normal Neck Neck: Yes normal visual inspection and Yes no lymphadenopathy Thyroid: Thyroid normal Resp Effort & Inspection: normal respiratory effort Auscultation: clear to auscultation bilaterally Cardio Rate: regular rate Rhythm: regular rhythm Heart sounds: S1 normal heart sound present, S2 normal heart sound present and no murmurs GI Palpation (GI): Soft to palpation and nontender Auscultation: normal bowel sounds Other: ANTONIO: ? slight enlargement of prostate, no nodules palpated Male General Exam: Yes normal external exam Penis: normal penis Scrotum: scrotum normal, testes descended bilaterally and no inguinal hernias Testes: no testicular mass Skin Rashes: no rashes Neuro General: patient oriented x3, moves all extremities, no focal motor deficits and deep tendon reflexes 2+ bilaterally Romberg Test: Negative Psych Appearance: grossly normal Mental Status: mental status grossly normal Speech and movement: Normal speech and movement present Affect: normal affect Attitude: cooperative Thought process: Normal thought process present Thought content: Normal thought content present Insight: Good insight present (Psych) Judgement: Good judgement present (Psych) Assessment and Plan Assessment & Plan (1) Screening for prostate cancer: Code(s): Z12.5 - Encounter for screening for malignant neoplasm of prostate Plan: PSA ordered Plan The patient agreed to the use of a medical services assistant for this encounter. Scribed for Dylan Roman BUSINESS PROCESS EXPERT-[employer] by Beatrice Mcgrath medical services assistant, on 11/14/2023 at 13:20 EST. Orders: Orders Comprehensive [place]. Panel Fast Today F10.10 - Alcohol abuse, uncomplicated, F32.4 - Major depressive disorder, single episode, in partial remission, N42.9 - Disorder of prostate, unspecified TSH reflex Free T4 Today F10.10 - Alcohol abuse, uncomplicated, F32.4 - Major depressive disorder, single episode, in partial remission, N42.9 - Disorder of prostate, unspecified UA CC w/rflx Micro + Cult Today F10.10 - Alcohol abuse, uncomplicated, F32.4 - Major depressive disorder, single episode, in partial remission, N42.9 - Disorder of prostate, unspecified Lipid Panel Today F10.10 - Alcohol abuse, uncomplicated, F32.4 - Major depressive disorder, single episode, in partial remission, N42.9 - Disorder of prostate, unspecified Complete Blood Count Auto Diff Today F10.10 - Alcohol abuse, uncomplicated, F32.4 - Major depressive disorder, single episode, in partial remission, N42.9 - Disorder of prostate, unspecified Prostate Specific Antigen Scr Today Z12.5 - Encounter for screening for malignant neoplasm of prostate Medications: New hydrochlorothiazide 25 mg PO DAILY 90 days 90 tabs 0RF Coding Level of Care Code Est Pt Prev Care 40-64y(93855) Diagnoses Screening for prostate cancer Z12.5 Additional Codes SREE-7 Assessment Billing - SREE-7 Assessment Tool: SREE-7 Assessment 79784 ([id number])
== END 2023-11-14 13:51 | disposition home or self-care (01) ==
PROVIDERS: PCP Nurse Practitioner Family; Visit Provider Nurse Practitioner Family
DX: Z00.00 Encounter for general adult medical examination without abnormal findings (principal); Z12.5 Encounter for screening for malignant neoplasm of prostate
CPT/HCPCS: 99396

== ENCOUNTER 2024-02-29 12:23 | Outpatient (AMB) | payer OTHER, SELFPAY ==
--- NOTE | 2024-02-29 13:47 | AM.OFFWIN_ITS ---
Intake Vital Signs 02/29/24 13:49 BP 110/80 Blood Pressure Location Rt brachial Position Sitting Pulse 70 Pulse Source Pulse Oximeter Pulse Oximetry (%) 98 Oxygen Delivery Method Room Air Intake Visit Reasons: EP- Medication reaction, Muscle spasm Patient Tobacco Use Status: Former Tobacco user Allergies acetaminophen [From Tylox] Allergy (Severe, Verified 11/14/23 13:22) Hives almond Allergy (Severe, Verified 11/14/23 13:22) Hives oxycodone [From Tylox] Allergy (Severe, Verified 11/14/23 13:22) Hives lisinopril Adverse Reaction (Severe, Verified 11/14/23 13:22) Angioedema amlodipine Adverse Reaction (Intermediate, Verified 11/14/23 13:22) Chest Pain HPI HPI Comments History of Present Illness Details Patient is a 48-year-old male complaining of left calf cramping. He tells me that couple of weeks ago, he went to the emergency department had labs done had an ultrasound done and was told he was not dehydrated and that all of his electrolytes were normal and he did not have a clot in his leg. He is telling me that the cramping in his left calf is continued, he has tried to increase his fluid intake but he thinks it is the hydrochlorothiazide he is taking every day that is making his calf cramp. He tells me he is eating a well rounded diet and drinking plenty of fluids. He has not tried taking magnesium supplementation. He tells me the cramping comes and goes, does not seem to be worse at night. He states that he exercises regularly, that does not seem to make it better or worse. PFSH Medical History Alcohol abuse Anxiety Migraine without aura Obesity HTN (hypertension) Vestibular migraine GERD (gastroesophageal reflux disease) Dyslipidemia Sleep apnea Tobacco use Surgical History H/O colonoscopy History of surgery Family History Father Unknown family medical history Mother HTN (hypertension) Mental illness in member of household Social History Housing: Apartment Alcohol intake: never Patient Tobacco Use Status: Former Tobacco user Tobacco use type: Cigarette Cigarette Packs Per Day: 0.5 Cigarettes Per Day: 10.0 Years Smoked: 20 e-Cigarette/Vaping Use: Never Used Second Hand Smoke Exposure: No service: No Current occupational status: employed and unemployed Cognitive needs: No Hearing needs: No Vision needs: No Physical Exam Const General: cooperative, healthy appearing, comfortable, no acute distress and well developed Orientation/consciousness: patient oriented x3 Limitations: no limitations HEENT Head: Yes normal to inspection Ears: hearing grossly normal bilaterally General nose exam: Normal external nose present Face and sinus: Yes normal facial exam Eyes General: appearance normal, both eyes and all related structures Neck Neck: Yes normal visual inspection and Yes full ROM Resp Effort & Inspection: normal respiratory effort and able to speak in complete sentences Skin General skin exam: no rashes or lesions noted Neuro General: patient oriented x3 Extrem General: Yes normal to inspection, Yes full ROM, Yes no calf tenderness and Yes normal gait Results Reviewed Results Reviewed: January 21 notes from [facility] state all the labs were within normal limits, magnesium was 1.9, DVT study was negative for a clot Assessment & Plan Assessment & Plan (1) Muscle cramping: Code(s): R25.2 - Cramp and spasm Plan: Vital signs are stable, notes from [facility] everything was normal with his labs and his ultrasound of his left lower extremity. Recommended supplementing with magnesium oxide daily. I told him I would send a few muscle relaxers to his pharmacy that he could try but I am not sure how effective they would be. If his pain continues, he should follow up with his PCP. Reminded him to stay well hydrated Plan see above Medications: New cyclobenzaprine 5 mg PO Q8H PRN 10 tabs 0RF Muscle Spasm Coding Level of Care Code Est Pt Level 3 (97871) Diagnoses Muscle cramping R25.2
[2024-02-29 13:49] VITALS: BP 110/80; PULSE 70; O2SAT 98
== END 2024-02-29 14:53 | disposition home or self-care (01) ==
PROVIDERS: PCP Nurse Practitioner Family; Visit Provider Physician Assistant
DX: R25.2 Cramp and spasm (principal)

== ENCOUNTER → 2024-02-29 12:23 | Outpatient (BNVA) | payer OTHER, SELFPAY | PROVIDERS: PCP Nurse Practitioner Family; Visit Provider Physician Assistant | DX: R25.2 Cramp and spasm (principal) | CPT/HCPCS: 99212 ==

== ENCOUNTER 2024-03-07 12:49 | Outpatient (AMB) | payer OTHER, SELFPAY ==
[2024-03-07 12:56] VITALS: BP 112/72; PULSE 70; O2SAT 98; BMI 36.5
--- NOTE | 2024-03-07 12:56 | A.OFFPC_ITS ---
Vital Signs 03/07/24 12:56 Height 6 ft Weight 269 lb BMI 36.5 BP 112/72 Blood Pressure Location Rt brachial Position Sitting Pulse 70 Pulse Source Pulse Oximeter Pulse Oximetry (%) 98 Oxygen Delivery Method Room Air Intake Visit Reasons: Followup BP, meds Intake Note: pt is here for follow up on BP meds Clean Up Person Required: No Accompanied by: Self / Same As Patient Allergies acetaminophen [From Tylox] Allergy (Severe, Verified 03/07/24 15:36) Hives almond Allergy (Severe, Verified 03/07/24 15:36) Hives oxycodone [From Tylox] Allergy (Severe, Verified 03/07/24 15:36) Hives lisinopril Adverse Reaction (Severe, Verified 03/07/24 15:36) Angioedema amlodipine Adverse Reaction (Intermediate, Verified 03/07/24 15:36) Chest Pain Medication List - Last Reconciled 03/07/24 by NORMA Hall-BECKY cyclobenzaprine 5 mg PO Q8H PRN hydrochlorothiazide 25 mg PO DAILY 90 days Tobacco use date assessed: 11/14/23 Dental Screening Dental Screen Date: 11/14/23 HPI Followup BP, meds HPI Details HTN: Blood pressure is stable, managed with hydrochlorothiazide 25mg. Pt reports ongoing cramping of his BLE. DVT was previously ruled out. Recommended magnesium oxide. Encouraged pt to avoid processed foods. Denies chest pain, shortness of breath, headache, dizziness, and blurred vision. PFSH Medical History Alcohol abuse Anxiety Migraine without aura Obesity HTN (hypertension) Vestibular migraine GERD (gastroesophageal reflux disease) Dyslipidemia Sleep apnea Tobacco use Surgical History H/O colonoscopy History of surgery Family History Father Unknown family medical history Mother HTN (hypertension) Mental illness in member of household Social History Housing: Apartment Alcohol intake: never Patient Tobacco Use Status: Former Tobacco user Tobacco use type: Cigarette Cigarette Packs Per Day: 0.5 Cigarettes Per Day: 10.0 Years Smoked: 20 Packs Per Year: 10 Packs per year/per ci.00 e-Cigarette/Vaping Use: Never Used Second Hand Smoke Exposure: No service: No Current occupational status: employed and unemployed Cognitive needs: No Hearing needs: No Vision needs: No Questionnaire Thrive Questionnaire Date Thrive assessed: 03/07/24 I am a: Patient What is your living situation today?: I have a steady place to live Within the past 12 months, did the food you bought not last and you didn't have the money to get more?: Sometimes True Within the past 12 months, did you worry whether your food would run out before you got money to buy more?: Sometimes True Do you have trouble paying for medicines?: Yes Do you have trouble getting transportation to medical appointments?: No Do you have trouble paying your heating and electricity bill?: I choose not to answer this question Do you have trouble taking care of your child, family member or friend?: I choose not to answer this question Do you have trouble with day-to-day activities such as bathing, preparing meals, shopping, managing finances, etc.?: No Are you currently unemployed and looking for a job?: Yes Are you interested in more education?: Yes Please select the resources that you would like help with: Food Currently or been in a relationship where the following occur: I choose not to answer THRIVE Score: 2 SREE-7 AMB Questionnaire SREE-7 Date SREE - 7 assessed: 11/14/23 Source: Developed by Drs. Zack Pereira, Rosa Maria Baumann, Sheng Blackmon and colleagues, with an educational jason from [employer]. Review of Systems Const Reports as per HPI Physical exam (Primary Care) Vital Signs: Last Vital Signs Pulse 70 03/07/24 12:56 BP 112/72 03/07/24 12:56 Pulse Ox 98 03/07/24 12:56 Oxygen Delivery Method Room Air 03/07/24 12:56 BMI result Body Mass Index 36.5 Tobacco/Smoking Status: Tobacco use Status Tobacco use date assessed 11/14/23 03/07/24 12:57 Patient Tobacco Use Status Former Tobacco user 03/07/24 12:57 Tobacco use type Cigarette 03/07/24 12:57 e-Cigarette/Vaping Use Never Used 03/07/24 12:57 Thrive Assessment: Date of Thrive Assessment Date Thrive assessed 03/07/24 03/07/24 12:57 Currently or been in a relationship where the following occur: I choose not to answer Const General: cooperative Nutritional Appearance: obese Orientation/consciousness: patient oriented x3 Resp Effort & Inspection: normal respiratory effort Auscultation: clear to auscultation bilaterally Cardio Rate: regular rate Rhythm: regular rhythm Heart sounds: S1 normal heart sound present and S2 normal heart sound present Neuro General: patient oriented x3 Extrem Right lower extremity: edema (trace) Left lower extremity: edema (trace) Psych Appearance: grossly normal Mental Status: mental status grossly normal Speech and movement: Normal speech and movement present Affect: normal affect Attitude: cooperative Thought process: Normal thought process present Thought content: Normal thought content present Insight: Good insight present (Psych) Judgement: Good judgement present (Psych) Coding Level of Care Code Est Pt Level 3 (35301) Diagnoses Primary hypertension I10 Hypertension type: primary hypertension Muscle cramping R25.2 Screening for prostate cancer Z12.5 Assessment & Plan Assessment & Plan (1) HTN (hypertension): Code(s): I10 - Essential (primary) hypertension Category: Medical Qualifiers: Hypertension type: primary hypertension Qualified Code(s): I10 - Essential (primary) hypertension Plan: Stable, recommended avoiding processed foods and foods high in sodium (2) Muscle cramping: Code(s): R25.2 - Cramp and spasm Category: Medical Plan: Recommended magnesium oxide (3) Screening for prostate cancer: Code(s): Z12.5 - Encounter for screening for malignant neoplasm of prostate Category: Medical Plan The patient agreed to the use of a medical insurance verifier for this encounter. Scribed for AMIE Kingsley by Beatrice Mcgrath medical insurance verifier, on 03/07/2024 at 13:20 EST. Orders: Orders TSH reflex Free T4 Today I10 - Essential (primary) hypertension, R25.2 - Cramp and spasm Lipid Panel Today I10 - Essential (primary) hypertension, R25.2 - Cramp and spasm Prostate Specific Antigen Scr Today Z12.5 - Encounter for screening for malignant neoplasm of prostate Magnesium Today R25.2 - Cramp and spasm Complete Blood Count Auto Diff Today I10 - Essential (primary) hypertension, R25.2 - Cramp and spasm Comprehensive [place]. Panel Fast Today I10 - Essential (primary) hypertension, R25.2 - Cramp and spasm UA CC w/rflx Micro + Cult Today I10 - Essential (primary) hypertension, R25.2 - Cramp and spasm
== END 2024-03-07 14:40 | disposition home or self-care (01) ==
PROVIDERS: PCP Nurse Practitioner Family; Visit Provider Nurse Practitioner Family
DX: I10 Essential (primary) hypertension (principal); R25.2 Cramp and spasm; Z12.5 Encounter for screening for malignant neoplasm of prostate

== ENCOUNTER → 2024-03-07 12:49 | Outpatient (BNVA) | payer OTHER, SELFPAY | PROVIDERS: PCP Nurse Practitioner Family; Visit Provider Nurse Practitioner Family | DX: I10 Essential (primary) hypertension (principal); R25.2 Cramp and spasm | CPT/HCPCS: 99212 ==

== ENCOUNTER 2024-04-05 13:00 | Outpatient (REF) | payer OTHER, SELFPAY ==
--- OUTSIDE RECORDS SUMMARY | 2024-04-05 13:03 | XMS_ITS | Data Portability ---
Author Organization [place] - [facility], [facility] Address [address] [address] Care Team Providers Care Clothing Consultant Name Role Phone MARSHA JOVEL Primary Care Provider Assessment Encounter Date Assessment Date Assessment LastModified by Organization Details LastModified Time 10/21/2023 10/21/2023 The patient complains of intermittent bilateral periauricular pressure sensation. Physical exam reveals no identifiable source of these symptoms involving the auricle, external auditory canal, or tympanic membrane. Audiometric testing and tympanometry are similarly unrevealing. Furthermore, examination was positive for crepitus and tenderness of the bilateral jaw joint and andre-TMJ musculature. The patient's periauricular pressure sensation is most likely consistent with intermittent inflammation of the jaw joint or spasm of the surrounding musculature. This is likely exacerbated by the missing teeth and dental clenching and grinding. I recommended the patient use light massage, warm compresses and anti-inflammator ies for symptomatic management. Stressed chewing evenly on both sides of the mouth to keep from overworking the jaw joint. Use soft food diet as needed. Jaw Joint Program information sheet was shared. If this treatment plan is ineffective, recommend follow up with their dentist.??Referr al to physical therapist who specializes in TMJ disorders was provided. [email or web address] Not available 10/21/2023 09:28:32 Plan of Treatment Reminders Order Date Submit Date Provider Last Modified By Organization Details Last Modified Time Details Appointments None record ed. Lab None record ed. Referral None record ed. Procedures None record ed. Surgeries None record ed. Imaging None record ed. Medication Orders None record ed. Patient TargetsNo targets recorded. Patient InstructionsNo instructions recorded. Reason for Referral None Reported. Results Created Date Observation Date Name Description Value Unit Range Abnormal Flag Note LastModifiedBy Organization Detail LastModifiedTime 10/24/19 audio gram No observ ation record ed. [email or web address] Not Available 04/2023 16:00:25 12/14/19 24 06/17/2020 imagi ng/di agnos tic resul t No observ ation record ed. [email or web address] Not Available 03:52:48 Result Notes None recorded. Problems Name Problem SNOMED Code Status Onset Date Resolution Date Notes Provider Name and Address Organization Details Recorded Time Obstructi ve sleep apnea syndrome 85004785 Active 2016 Obstructi ve sleep apnea (adult) (pediatri c); Note: Date Diagnosed : 08/10/2016 5:51 PM (G47.33) Not Available [facility] 4 02:54:56 Insomnia with sleep apnea 04825211 Active 2016 Obstructi ve sleep apnea; Note: Date Diagnosed : 08/10/2016 5:50 PM (780.51) Not Available [facility] 4 02:54:54 Abnormal auditory perceptio n 61728442 Active 2020 Other abnormal auditory perceptio ns, bilateral ; Note: Date Diagnosed : 06/17/2020 5:31 PM (H93.293) Not Available [facility] 4 02:54:52 Refractor y migraine 722233136 Active 2016 Other migraine, intractab le, without status migrainos us; Note: Date Diagnosed : 08/10/2016 5:52 PM (G43.819) Not Available [facility] 4 02:54:52 Vertigo of central origin NOS Active 2016 Vertigo of central origin, unspecifi ed ear; Note: Date Diagnosed : 08/10/2016 5:52 PM (H81.49) Not Available [facility] 4 02:54:51 Tobacco user 561327381 Active 2016 Tobacco use; Note: Date Diagnosed : 08/10/2016 5:59 PM (Z72.0) Not Available [facility] 4 02:54:55 Bilateral tinnitus 11434652586 02 Active 2020 Tinnitus, bilateral ; Note: Date Diagnosed : 06/17/2020 5:31 PM (H93.13) Not Available [facility] 4 02:54:54 Marijuana user 698845355 Active 2023 SHERIE APODACA MD [address] [facility] [place] [facility], [place], [address] , [facility] - [facility] [place] [facility] 4 09:27:08 Bilateral referred otalgia of ears 44357826395 48143 Active 2023 SHERIE APODACA MD 100 [facility],[place] [address], [place], [place], [address] , [place] - [facility] [place] [facility] 4 09:27:28 Arthralgi a of temporoma ndibular joint 55312017 Active 2023 SHERIE APODACA MD 100 [facility],[place] [address], [place], [address] , [facility] - [facility] [place] 4 09:27:37 Localized masticato ry muscle soreness 142255219 Active 2023 SHERIE APODACA MD 100 [facility],[place] [address], [place], [address] , [facility] - [facility] [place] [facility] 4 10:18:15 Problem Notes None recorded. Procedures Surgical History Date Name Laterality Status Provider Name and Address Organization Details Recorded Time 10/21/2023 Air & Speech Audio with Tymps (73440, 44033 & 63787) completed IFEANYI POWER MA, CCC-A [address] [facility] [place] [facility], [place], [address], [facility] - [facility] [place] [facility] 10/21/2023 10:01:06 Imaging Results Imaging Date Name Status LastModified by Organiz ation Details LastModified Time 10/24/2023 audiogram completed [email or web address] Information n ot available 10/24/2023 16:00:25 06/17/2020 imaging/diagno stic result completed [email or web address] Information not available 12/14/2023 03:52:48 Procedure Notes None recorded. Medical Equipment None Reported. Medications Name Sig Start Date Stop Date Status Note LastModified by Organization Details LastModified Time cyclobenz aprine 10 mg tablet PLEASE SEE ATTACHED FOR DETAILED DIRECTIO NS active Not Available Not Available No t Available lisinopri l 10 mg tablet active Medicati on ID: [id number] B rand Name: lisinopr il Send Method: E-Prescr ibed Sub s Allowed: subs OK Medic ationGen ericName : lisinopr il Not Available Not Available Not Available lisinopri l 5 mg tablet 06/17 completed Medicati on ID: [id number] D uration Value: 30 Brand Name: lisinopr il Send Method: E-Prescr ibed Sub s Allowed: subs OK Speci al Instruct ion: TK 1 T PO QD Medic ationGen ericName : lisinopr il Not Available Not Available Not Available hydrochlo rothiazid e 25 mg tablet TAKE 1 TABLET BY MOUTH DAILY. active Not Available Not Available No t Available cyclobenz aprine 5 mg tablet TAKE 1 TO 2 TABLETS BY MOUTH 3 TIMES A DAY NEEDED FOR MUSCLE SPASMS active Not Available Not Available No t Available ProAir HFA 90 mcg/actua tion aerosol inhaler active Medicati on ID: [id number] B rand Name: ProAir HFA Send Method: E-Prescr ibed Sub s Allowed: subs OK Speci al Instruct ion: INHALE 2 PUFFS BY MOUTH EVERY 6 HOURS NEEDED FOR SHORTNES S OF BREATH M edicatio nGeneric Name: ProAir HFA Not Available Not Available Not Available hydrochlo rothiazid e 12.5 mg tablet TAKE 1 TABLET DAILY active Not Available Not Available No t Available EC-Naprox en 500 mg tablet,de layed release TAKE 1 TABLET BY MOUTH TWICE A DAY active Not Available Not Available No t Available Vitals Date Recorded Body height Body mass index (BMI) Body weight Provider Name and Address Organization Details Last Updated DateTime 10/21/2023 182.88 cm 33.8 kg/m2 947360.5 g Maria Luisa Pacheco [place] - [facility] 10/21/2023 09:02:29 Social History Question Answer Notes LastModified by Organizat ion Details LastModified Time Tobacco Smoking Status Former Smoker SHERIE APODACA MD [address] [place] [address], [phone], [facility] - [facility] 10/21/2023 09:18:27 Which Illicit Or Recreational Drugs Have You Used? Marijuana, 1 Joint A Day [email or web address] Information not available 10/21/2023 When Did You Quit Smoking? 1-5yearssin cuca gomez Information not available 10/21/2023 Do You Use Any Illicit Or Recreational Drugs? Yes [email or web address] Information not available 10/21/2023 Sex: Unknown Functional Status None recorded. Mental Status None recorded. Family History Nothing Reported. Medical History No medical history recorded. Past Encounters Encounter ID Performer Location Encounter Start Date Encounter Closed Date Diagnosis/Indication Diagnosis SNOMED-CT Code Diagnosis ICD10 Code [id number] SHERIE APODACA MD [facility] [address] [address] 10/21/2023 08:44:23 10/21/2023 10:18:55 Abnormal auditory perception 72403078 H93.293 Marijuana user 626708242 F12.90 Bilateral referred otalgia of ears 8959916618 093730 H92.03 Arthralgia of temporomandibular joint 73470546 M26.629 Localized masticatory muscle soreness 731380324 M79.10 Health Concerns Section Related Observation LastModified by Organization Detai ls LastModified Time None Recorded Concern Status LastModified by Organization Details LastModified Time None Recorded Advance Directives Directive None Recorded Payers Encounter Date Sequence Insurance Name Policy Number Policy Espino Covered Member ID Espino Member ID Guarantor Name 10/21/2023 1 [facility] NET PL[facility] (MEDICAID HMO) NANCY Casper [id number] Minesh Casper Notes Date Note Type Note Provider Name and Address Organization Details Recorded Time 10/21/2023 text/html 48-year-old male with long history of chronic migraine who I last saw back in 2017. We were working with him to identify and eliminate migraine triggers. In addition he has obstructive sleep apnea and has CPAP, but does not use it consistently. He'd been a long-term smoker, quit 4 years ago. Comes in today with complaints of blockage sensation in both ears about 40% of the time. He continues to have a headache every single day. He does not follow the recommendations regarding identification and elimination of migraine triggers. At his last visit we discussed the fact that his chronic uncontrolled migraine is the likely cause of the chronic muffling sensation, and that his untreated obstructive sleep apnea is likely contributing to the persistent migraine phenomenon. Patient reports that he has lost a lot of weight since his last visit and has been working out. He changed his diet and is no longer getting consistent headaches. Since losing weight, his has noticed a significant decrease in the snoring and the absence of breathing stoppage at night. Patient reports intermittent blockage sensation in 1 or both ears. It will happen most days. Its episodic lasting anywhere from 2 seconds to 1 hour, but it is usually shorter lived. This can happen 4-5 times per day. No specific triggers that he can tell. Patient currently smoking 1 marijuana joint per day. He is not sure if the use of marijuana is affecting the pattern of his symptoms. SHERIE APODACA MD [address] [place] [address], [phone], [facility] - [facility] 10/21/2023 10:18:52
[2024-04-05 16:42] LABS: MANUAL DIFF FLAG NO
[2024-04-05 16:45] LABS: Basophils Percent Auto 0.4 % (0-2); Eosinophils Absolute Auto 0.1 X10*3/uL (0.0-0.4); Eosinophils Percent Auto 1.6 % (0-4); Hematocrit 45.7 % (42.0-52.0); Hemoglobin 15.1 g/dl (14.0-18.0); Imm Gran Abs Auto 0.02 X10*3/uL (0.00-0.03); Imm Gran Pct Auto 0.2 % (0.0-0.4); Lymphocytes Absolute Auto 1.9 X10*3/uL (1.2-4.9); Lymphocytes Percent Auto 23.8 % (20-40); Mean Corpuscular Hemoglobin 27.3 pg (27.0-33.0); Mean Corpuscular Volume 82.6 fL (80.0-98.0); Mean Platelet Volume 11.1 fL (9.4-12.4); Monocytes Absolute Auto 0.7 X10*3/uL (0.1-1.2); Neutrophils Absolute Auto 5.3 x10*3/uL (2.0-8.3); Platelet Count 321 X10*3/uL (160-400); Red Blood Count 5.53 X10*6/uL (4.60-5.80); Red Cell Distribution Width 12.3 % (11.0-16.0); White Blood Count 8.2 X10*3/uL (4.8-10.8)
[2024-04-05 17:08] LABS: Alanine Aminotransferase 41 U/L (0-40); Albumin Level 4.2 g/dL (3.5-5.0); Alkaline Phosphatase 77 U/L (39-117); Anion Gap 13 (12-20); Aspartate Amino Transferase 33 U/L (5-37); Bilirubin Total 1.3 mg/dL (0.0-1.0); Blood Urea Nitrogen 13 mg/dL (9-16); Calcium 10.2 mg/dL (8.4-10.2); Carbon Dioxide 28 mmol/L (22-29); Chloride 103 mmol/L (96-108); Cholesterol 202 mg/dL (<200); Estimated Glomerular Filt Rate > 60; Glucose Fasting 94 mg/dL (60-99); HDL Cholesterol 44 mg/dL (>40); LDL Cholesterol Calculated 136 mg/dL (<100); Magnesium 1.9 mg/dL (1.6-2.6); Potassium 3.8 mmol/L (3.3-5.1); Sodium 140 mmol/L (135-145); Total Protein 8.1 g/dL (6.5-8.0); Triglycerides 114 mg/dL (<150)
[2024-04-05 17:17] LABS: Prostate Specific Antigen Scr 0.85 ng/mL (<0.05-4.0)
[2024-04-05 17:24] LABS: Appearance Urine Clear; Color Urine Yellow; Glucose Urine UA Negative (Negative); Leukocyte Esterase Urine Negative (Negative); Nitrite Urine Negative (Negative); Specific Gravity - Urine 1.025 (1.005-1.025); Urine Blood Negative (Negative); Urine Ketones Negative (Negative); Urine Protein Negative (Neg-Trace)
[2024-04-05 17:25] LABS: TSH reflex Free T4 1.07 uIU/mL (0.32-4.0)
== END 2024-04-05 13:01 | disposition home or self-care (01) ==
LOC: HO.HMGCLDS 13:00
PROVIDERS: PCP Nurse Practitioner Family; Visit Provider Nurse Practitioner Family
DX: Z12.5 Encounter for screening for malignant neoplasm of prostate (principal); R25.2 Cramp and spasm; I10 Essential (primary) hypertension
CPT/HCPCS: 36415; 80053; 80061; 81003; 83735; 84153; 84443; 85025

== ENCOUNTER 2024-04-13 08:31 | Outpatient (REF) | payer OTHER, SELFPAY ==
--- NOTE | ~2024-04-13 | US_ITS ---
EXAMINATION: US ABDOMEN COMPLETE CLINICAL INFORMATION: Abnormal levels of other serum enzymes. COMPARISON: Renal ultrasound with bladder 02/21/2018. Ultrasound abdomen 08/24/2016. TECHNIQUE: Real-time imaging of the abdominal viscera. Technically limited study secondary to bowel gas. FINDINGS: PANCREAS: Obscured by bowel gas not well visualized. ABDOMINAL AORTA: The proximal, mid, and distal segments are normal in caliber. INFERIOR VENA CAVA: Visualized portions are normal. LIVER: The liver is normal in size. The liver contour is normal. Parenchymal echogenicity is normal. No focal hepatic lesion. There is no intrahepatic biliary duct dilatation seen. GALLBLADDER: The gallbladder is physiologically distended without evidence of stones, sludge, wall thickening or pericholecystic fluid. Echogenic structure adherent to the gallbladder wall 4 mm probably a polyp COMMON BILE DUCT: Normal in caliber measuring 0.20 cm in diameter. RIGHT KIDNEY: No hydronephrosis. No renal calculi or focal parenchymal lesions. The kidney measures 10.5 cm in maximum dimension. LEFT KIDNEY: No hydronephrosis. No renal calculi or focal parenchymal lesions. The kidney measures 10.6 cm in maximum dimension. SPLEEN: The spleen measures 10.8 cm in maximum dimension. FREE FLUID: None. US/US abdomen complete IMPRESSION: * No ultrasound evidence of intra or extrahepatic biliary dilatation. * Echogenic structure adherent to the gallbladder wall 4 mm probably a polyp. Attention to follow-up recommended. Consider follow-up ultrasound in 6 months. * Pancreas not well visualized obscured by bowel gas. Electronically signed by: Abner Ross MD 04/16/2024 06:06 PM [facility]
--- OUTSIDE RECORDS SUMMARY | 2024-04-13 08:33 | XMS_ITS | Data Portability ---
Author Organization [place] - [facility], All[facility] Address [address] [address] Care Team Providers Care Medical Supply Technician Name Role Phone MARSHA JOVEL Primary Care [...] who specializes in TMJ disorders was provided. [email or web address] Not available 10/21/2023 09:28:32 Plan of Treatment [...] audio gram No observ ation record ed. [email or web address] Not Available 04/2023 16:00:25 12/14/19 24 06/17/2020 imagi ng/di agnos tic resul t No observ ation record ed. [email or web address] Not Available 03:52:48 Result Notes None recorded. Problems Name Problem SNOMED Code Status Onset Date Resolution Date Notes Provider Name and Address Organization Details Recorded Time Obstructi ve sleep apnea syndrome 48917522 Active 2016 Obstructi ve sleep apnea (adult) (pediatri c); Note: Date Diagnosed : 08/10/2016 5:51 PM (G47.33) Not Available [facility] 4 02:54:56 Insomnia with sleep apnea 32553811 Active 2016 Obstructi ve sleep apnea; Note: Date Diagnosed : 08/10/2016 5:50 PM (780.51) Not Available [facility] 4 02:54:54 Abnormal auditory perceptio n 74871626 Active 2020 Other abnormal auditory perceptio ns, bilateral ; Note: Date Diagnosed : 06/17/2020 5:31 PM (H93.293) Not Available [facility] 4 02:54:52 Refractor y migraine 822342782 Active 2016 Other migraine, intractab le, without status migrainos us; Note: Date Diagnosed : 08/10/2016 5:52 PM (G43.819) Not Available [facility] 4 02:54:52 Vertigo of central origin NOS Active 2016 Vertigo of central origin, unspecifi ed ear; Note: Date Diagnosed : 08/10/2016 5:52 PM (H81.49) Not Available [facility] 4 02:54:51 Tobacco user 251726141 Active 2016 Tobacco use; Note: Date Diagnosed : 08/10/2016 5:59 PM (Z72.0) Not Available [facility] 4 02:54:55 Bilateral tinnitus 30550203551 02 Active 2020 Tinnitus, bilateral ; Note: Date Diagnosed : 06/17/2020 5:31 PM (H93.13) Not Available [facility] 4 02:54:54 Marijuana user 430284834 Active 2023 SHERIE APODACA MD 100 [facility] [place] [facility], [place], [address] , [facility] - [facility] [place] 4 09:27:08 Bilateral referred otalgia of ears 14864363422 15608 Active 2023 SHERIE APODACA MD 100 [facility],[place] [address], [place], [place], [address] , [place] - [facility] [place] 4 09:27:28 Arthralgi a of temporoma ndibular joint 48141555 Active 2023 SHERIE APODACA MD 100 [facility],[place] [address], [place], [address] , [facility] - [facility] [place] 4 09:27:37 Localized masticato ry muscle soreness 630082672 Active 2023 SHERIE APODACA MD 100 [facility],[place] [address], [place], [address] , [facility] - [facility] [place] 4 10:18:15 Problem Notes None recorded. Procedures Surgical History Date Name Laterality Status Provider Name and Address Organization Details Recorded Time 10/21/2023 Air & Speech Audio with Tymps (77423, 76295 & 95669) completed IFEANYI POWER MA, CCC-A [address] [facility] [place] [facility], [place], [address], [facility] - [facility] [place] 10/21/2023 10:01:06 Imaging Results Imaging Date Name Status LastModified by Organiz ation Details LastModified Time 10/24/2023 audiogram completed [email or web address] Information n ot available 10/24/2023 16:00:25 06/17/2020 [...] 10 mg tablet active Medicati on ID: [id number] B rand Name: lisinopr il Send Method: E-Prescr ibed Sub s Allowed: subs OK Medic ationGen ericName : lisinopr il Not Available Not Available Not Available lisinopri l 5 mg tablet 06/17 completed Medicati on ID: [id number] D uration Value: 30 Brand Name: lisinopr [...] tion aerosol inhaler active Medicati on ID: [id number] B rand Name: ProAir HFA Send Method: [...] Updated DateTime 10/21/2023 182.88 cm 33.8 kg/m2 356766.5 g Mraia Luisa Pacheco [place] - [facility] 10/21/2023 09:02:29 Social History Question Answer Notes LastModified by Organizat ion Details LastModified Time Tobacco Smoking Status Former Smoker SHERIE APODACA MD [address] [place] [address], [phone], [facility] - [facility] 10/21/2023 09:18:27 Which Illicit Or Recreational Drugs Have You Used? Marijuana, 1 Joint A Day [email or web address] Information not available 10/21/2023 When Did You Quit Smoking? 1-5yearssin cuca gomez [email or web address] Information not available 10/21/2023 Do You Use Any Illicit Or Recreational Drugs? Yes [email or web address] Information not available 10/21/2023 Sex: Unknown Functional Status None recorded. Mental Status None recorded. Family History Nothing Reported. Medical History No medical history recorded. Past Encounters Encounter ID Performer Location Encounter Start Date Encounter Closed Date Diagnosis/Indication Diagnosis SNOMED-CT Code Diagnosis ICD10 Code [id number] SHERIE APODACA MD [facility] [address] [address] 10/21/2023 08:44:23 10/21/2023 10:18:55 Abnormal auditory perception 80700138 H93.293 Marijuana user 440772553 F12.90 Bilateral referred otalgia of ears 3996681780 209110 H92.03 Arthralgia of temporomandibular joint 74116010 M26.629 Localized masticatory muscle soreness 262164751 M79.10 Health Concerns Section Related Observation LastModified by Organization Detai ls LastModified Time None Recorded Concern Status LastModified by Organization Details LastModified Time None Recorded Advance Directives Directive None Recorded Payers Encounter Date Sequence Insurance Name Policy Number Policy Espino Covered Member ID Espino Member ID Guarantor Name 10/21/2023 1 [facility] - HEALTH NET PLAN (MEDICAID HMO) NANCY Casper [id number] Minesh Casper Notes Date Note Type Note [...] of his symptoms. SHERIE APODACA MD [address] [place] [address], [phone], [facility] - [facility] 10/21/2023 10:18:52
== END 2024-04-13 08:32 | disposition home or self-care (01) ==
LOC: HO.HMGCX 08:31
PROVIDERS: PCP Nurse Practitioner Family; Visit Provider Nurse Practitioner Family
DX: R74.8 Abnormal levels of other serum enzymes (principal)
CPT/HCPCS: 76700

== ENCOUNTER 2024-05-07 15:28 | Outpatient (AMB) | payer OTHER, SELFPAY ==
[2024-05-07 15:30] VITALS: BP 126/80; PULSE 80; O2SAT 97; BMI 35.0
--- NOTE | 2024-05-07 15:30 | A.OFFPC_ITS ---
Vital Signs 05/07/24 15:30 Height 6 ft Weight 258 lb BMI 35.0 BP 126/80 Blood Pressure Location Rt brachial Position Sitting Pulse 80 Pulse Source Pulse Oximeter Pulse Oximetry (%) 97 Intake Visit Reasons: 6 month follow up Intake Note: pt is here for 6 mon f/up Immunology Specialist Required: No Accompanied by: Self / Same As Patient Allergies acetaminophen [From Tylox] Allergy (Severe, Verified 05/07/24 15:30) Hives almond Allergy (Severe, Verified 05/07/24 15:30) Hives oxycodone [From Tylox] Allergy (Severe, Verified 05/07/24 15:30) Hives lisinopril Adverse Reaction (Severe, Verified 05/07/24 15:30) Angioedema amlodipine Adverse Reaction (Intermediate, Verified 05/07/24 15:30) Chest Pain Medication List - Last Reconciled 05/07/24 by NORMA Hall-BECKY hydrochlorothiazide 25 mg PO DAILY 90 days Tobacco use date assessed: 05/07/24 Dental Screening Dental Screen Date: 05/07/24 Did you have a dental visit in the last 12 months?: Yes Did you have a dental problem in the last 6 months where you did not have access to dental care?: No Was dental information given to patient?: Patient has dentist HPI 6 month follow up HPI Details Chief Complaint Follow-up for prior gallbladder polyp and elevated liver enzymes. History of Present Illness The patient is a 49-year-old male presenting for a six-month follow-up concerning elevated liver enzymes. The initial concern arose when routine blood work indicated a slight elevation in liver enzyme levels. An abdominal ultrasound was conducted, revealing a gallbladder polyp. There was no evidence of any other abnormalities, but due to the presence of the polyp, a repeat ultrasound was planned. The patient has since made lifestyle adjustments, specifically changing his diet, and has lost eight pounds as a result. He regularly attends the gym and prioritizes exercise, which has contributed to his improved overall health. The management focus has been on dietary changes to aid in further improvement of liver function and to potentially lower cholesterol levels. There was a plan to re-evaluate his cholesterol, kidney, and liver function in approximately two months. Hx of herpes type, 2 , pt would like medication to help with next breakout. Social History - Regularly attends the gym and engages in physical exercise. - Has made significant dietary adjustmen ts, resulting in an eight-pound weight loss. Health Maintenance - Discussed the importance of dietary ch anges in addition to exercise for overall health improvement. - Advised re-evaluation of liver functio n, kidney function, and cholesterol levels in two months. Review of Systems Physical Exam General: Cooperative, healthy appearing, comfortable, no acute distress and well developed Orientation: Patient oriented x3 Limitations: No limitations Head: Normal to inspection Ears: Hearing grossly normal bilaterally Nose: Normal external nose present Face and sinus: Normal facial exam Eyes: Appearance normal, both eyes and all related structures Neck: Normal visual inspection and Yes full ROM Respiratory: Normal respiratory effort and able to speak in complete sentences. Clear to auscultation bilaterally Cardiovascular: Regular rate and rhythm. Normal S1 and S2 GI: Normal to inspection. Soft to palpation and nontender Skin: No rashes or lesions noted Neuro: Patient oriented x3 Extremities: Normal to inspection Results - Ultrasound: Revealed a gallbladder margaret yp. Plan - Repeat abdominal ultrasound in six mon ths to monitor the gallbladder polyp. - Continue current dietary adjustments a nd regular exercise regimen. - Schedule repeat cholesterol, kidney, a nd liver function tests in two months. Patient was informed and verbally consented to the use of an ambient scribe for clinic note documentation during this visit. Discussion Notes I discussed with the patient the presence of a gallbladder polyp observed in the initial ultrasound and the approach to monitor it with a follow-up ultrasound in six months. We reviewed the beneficial impact of the dietary adjustments and regular exercise routine he has adopted, as evidenced by his weight loss and improved health. I emphasized the need for re-evaluating his liver function tests, kidney tests, and cholesterol in two months to appropriately monitor his condition and effect of lifestyle changes. The patient was encouraged to continue his current efforts and was informed of the importance of these measures. Patient Instructions - Continue dietary adjustments and physi rupert exercise. - Return for repeat liver, kidney, and c holesterol function tests in two months. - Schedule a follow-up ultrasound for th e gallbladder in six months. - Monitor any new symptoms and report th em promptly. -meds sent for herpes outbreaks [facility] Medical History Herpes simplex type 2 infection Alcohol abuse Anxiety Migraine without aura Obesity HTN (hypertension) Vestibular migraine GERD (gastroesophageal reflux disease) Dyslipidemia Sleep apnea Tobacco use Surgical History H/O colonoscopy History of surgery Family History Father Unknown family medical history Mother HTN (hypertension) Mental illness in member of household Social History Housing: Apartment Alcohol intake: never Patient Tobacco Use Status: Former Tobacco user Tobacco use type: Cigarette Cigarette Packs Per Day: 0.5 Cigarettes Per Day: 10.0 Years Smoked: 20 e-Cigarette/Vaping Use: Never Used Second Hand Smoke Exposure: No service: No Current occupational status: employed and unemployed Cognitive needs: No Hearing needs: No Vision needs: No Questionnaire PHQ-9 Over the last 2 weeks, how often have you been bothered by any of the following problems? 1. Little interest or pleasure in doing things: not at all 2. Feeling down, depressed, or hopeless: not at all 3. Trouble falling or staying asleep, or sleeping too much: not at all 4. Feeling tired or having little energy: not at all 5. Poor appetite or overeating: not at all 6. Feeling bad about yourself - or that you are a failure or have let yourself or your family down: not at all 7. Trouble concentrating on things, such as reading the newspaper or watching television: not at all 8. Moving or speaking so slowly that other people could have noticed. Or the op posite - being so fidgety or restless that you have been moving around a lot more than usual: not at all 9. Thoughts that you would be better off or of hurting yourself in some way: not at all Total score: 0 Depression Screening Interpretation: Negative Depression Screening Done: Yes 46103 - PHQ-9 Billing: Yes Source: Developed by Drs. Zack Pereira, Rosa Maria Baumann, Sheng Blackmon and colleagues, with an educational jason from [employer]. Thrive Questionnaire Date Thrive assessed: 05/07/24 I am a: Patient What is your living situation today?: I have a steady place to live Within the past 12 months, did the food you bought not last and you didn't have the money to get more?: Sometimes True Within the past 12 months, did you worry whether your food would run out before you got money to buy more?: Sometimes True Do you have trouble paying for medicines?: Yes Do you have trouble getting transportation to medical appointments?: No Do you have trouble paying your heating and electricity bill?: I choose not to answer this question Do you have trouble taking care of your child, family member or friend?: I choose not to answer this question Do you have trouble with day-to-day activities such as bathing, preparing meals, shopping, managing finances, etc.?: No Are you currently unemployed and looking for a job?: Yes Are you interested in more education?: Yes Please select the resources that you would like help with: Food Currently or been in a relationship where the following occur: I choose not to answer THRIVE Score: 2 AUDIT C Alcohol Use Questionnaire (AUDIT-C) 1. How often do you have a drink containing alcohol?: 2-4 times a month 2. How many drinks containing alcohol do you have on a typical day when you are drinking?: 1 or 2 3. How often do you have six or more drinks on one occasion?: Never Total Score: 2 Score Reviewed/Action Taken: Yes SREE-7 AMB Questionnaire SREE-7 Date SREE - 7 assessed: 05/07/24 Feeling nervous, anxious, or on edge: 1 = Several days Not being able to stop or control worryin = Several days Worrying too much about different things: 1 = Several days Trouble relaxin = Not at all Being so restless that it is hard to sit still: 0 = Not at all Becoming easily annoyed or irritable: 1 = Several days Feeling afraid as if something awful might happen: 1 = Several days Total SREE-7 score (0-4 normal; 5-9 mild; 10-14 moderate; 15-21 severe): 5 Source: Developed by Drs. Zack Pereira, Rosa Maria Baumann, Sheng Blackmon and colleagues, with an educational jason from [employer]. SREE-7 Assessment Billing SREE-7 Assessment Tool: SREE-7 Assessment 15156 Physical exam (Primary Care) Vital Signs: Last Vital Signs Pulse 80 05/07/24 15:30 BP 126/80 05/07/24 15:30 Pulse Ox 97 05/07/24 15:30 BMI result Body Mass Index 35.0 Tobacco/Smoking Status: Tobacco use Status Tobacco use date assessed 05/07/24 05/07/24 15:31 Patient Tobacco Use Status Former Tobacco user 05/07/24 15:31 Tobacco use type Cigarette 05/07/24 15:31 e-Cigarette/Vaping Use Never Used 05/07/24 15:31 PHQ-9: PHQ-9 Score PHQ-9: Total score 0 05/07/24 15:31 Depression Screening Interpretation: Negative Thrive Assessment: Date of Thrive Assessment Date Thrive assessed 05/07/24 05/07/24 15:31 Currently or been in a relationship where the following occur: I choose not to answer Coding Level of Care Code Est Pt Level 3 (56565) Diagnoses Dyslipidemia E78.5 Elevated liver enzymes R74.8 Additional Codes SREE-7 Assessment Billing - SREE-7 Assessment Tool: SREE-7 Assessment 65821 ([id number]) PHQ-9 - 21667 - PHQ-9 Billing: Yes ([id number]) Assessment & Plan Assessment & Plan (1) Dyslipidemia: Code(s): E78.5 - Hyperlipidemia, unspecified Category: Medical (2) Elevated liver enzymes: Code(s): R74.8 - Abnormal levels of other serum enzymes Category: Medical Plan . Orders: Orders Lipid Panel Today E78.5 - Hyperlipidemia, unspecified, R74.8 - Abnormal levels of other serum enzymes Comprehensive [place]. Panel Fast Today E78.5 - Hyperlipidemia, unspecified, R74.8 - Abnormal levels of other serum enzymes Medications: New valacyclovir 500 mg PO BID 3 days 6 tabs 2RF
== END 2024-05-07 16:35 | disposition home or self-care (01) ==
PROVIDERS: PCP Nurse Practitioner Family; Visit Provider Nurse Practitioner Family
DX: E78.5 Hyperlipidemia, unspecified (principal); R74.8 Abnormal levels of other serum enzymes

== ENCOUNTER → 2024-05-07 15:28 | Outpatient (BNVA) | payer OTHER, SELFPAY | PROVIDERS: PCP Nurse Practitioner Family; Visit Provider Nurse Practitioner Family | DX: E78.5 Hyperlipidemia, unspecified (principal); R74.8 Abnormal levels of other serum enzymes | CPT/HCPCS: 96127; 99212 ==

== ENCOUNTER 2024-10-18 09:46 | Outpatient (REF) | payer OTHER, SELFPAY ==
--- NOTE | ~2024-10-18 | US_ITS ---
CLINICAL HISTORY: R74.8 - Abnormal levels of other serum enzymes US abdomen limited Comparison: None provided Findings: The visualized pancreas is normal. The aorta and inferior vena cava are normal caliber. The liver is normal in size and echotexture. There is no intrahepatic bile duct dilatation. The common duct is 2.9 mm in diameter. There is a subcentimeter gallbladder polyp. The gallbladder is otherwise normal. There is no sonographic Ivey sign. The main portal vein is antegrade. The right kidney is 8.4 cm in length. No ascites. IMPRESSION: 1. Subcentimeter gallbladder polyp. This document has been electronically signed by: Zack Mcneil MD on 10/19/2024 09:03:10
--- OUTSIDE RECORDS SUMMARY | 2024-10-18 11:00 | XMS_ITS | Clinical Summary ---
Author Organization Patient Business Ser [facility] Address [address] [place] [address] Care Team Providers Care Cable Tower Operator Name Role Phone Dylan Roman NP Primary Care Provider Surgical History Surgery Date Site/Laterality Comments OTHER SURGICAL HISTORY PROCEDURE: MA UNLISTED PROCEDURE PELVIS/HIP JOINT ESOPHAGOGASTRODUODENOSCOPY 01/13/2010 PROCEDURE: MA ESOPHAGOGASTRODUODENOSCOPY TRANSORAL DIAGNOSTIC; COMMENT: negative Family History Medical History Relation Name Comments Hypertension Mother Relation Name Status Comments Father Other Mother Alive Social History Tobacco Use Types Packs/Day Years Used Date Smoking Tobacco: Every Day Cigarettes Smokeless Tobacco: Never Alcohol Use Standard Drinks/Week Comments Yes 0 (1 standard drink = 0.6 oz pur e alcohol) Sex and Gender Information Value Date Recorded Sex Assigned at Not on file Legal Sex Male 7:42 PM EST Gender Identity Not on file Sexual Orientation Not on file Obstetrics History Plan of Treatment Health Maintenance Due Date Last Done Comments Hepatitis A Vaccines (1 of 2 - Risk 2-dose series) 1993 Hepatitis B Vaccines (1 of 3 - 19+ 3-dose series) 1993 Pneumococcal Vaccine: 50+ Ye ars (1 of 2 - PCV) 1993 Pneumococcal Vaccine: Pediat rics (0 to 5 Years) and At-Risk Patients (6 to 64 Years) (1 of 2 - PCV) 1993 DTaP,Tdap,and Td Vaccines (2 - Td or Tdap) 05/20/2020 05/20/2010 Cholesterol Screening (Lipid Panel) 03/27/2022 Colorectal Cancer Screening: Colonoscopy 03/27/2022 Depression Screening 03/27/2022 HIV Screening 03/27/2022 Hepatitis C Screening 03/27/2022 Social Influencers of Health Screening 03/27/2022 COVID-19 Vaccine ( - 2023-2 5 season) 2023 Zoster Vaccines (1 of 2) 2024 Influenza Vaccine (Season Ended) 2024 HIB Vaccines Aged Out No longer eligi ble based on patient's age to complete this topic HPV Vaccines Aged Out No longer eligi ble based on patient's age to complete this topic IPV Vaccines Aged Out No longer eligi ble based on patient's age to complete this topic MMR Vaccines Aged Out No longer eligi ble based on patient's age to complete this topic Meningococcal ACWY Vaccine Aged Out N o longer eligible based on patient's age to complete this topic Meningococcal B Vaccine Aged Out No l onger eligible based on patient's age to complete this topic RSV Immunization Patients Un mateo 20 months Aged Out No longer eligible b ased on patient's age to complete this topic Varicella Vaccines Aged Out No longer eligible based on patient's age to complete this topic Care Teams Cable Tower Operator Relationship Specialty Start Date End Date Dylan Roman NP [facility] - General 06/02/20
== END 2024-10-18 09:47 | disposition home or self-care (01) ==
LOC: HO.HMGCX 09:46
PROVIDERS: PCP Nurse Practitioner Family; Visit Provider Nurse Practitioner Family
DX: K82.4 Cholesterolosis of gallbladder (principal)
CPT/HCPCS: 76705

== ENCOUNTER → 2024-10-18 10:09 | Outpatient (BNV) | payer OTHER, SELFPAY | PROVIDERS: PCP Nurse Practitioner Family; Visit Provider Specialist | DX: K82.4 Cholesterolosis of gallbladder (principal) | CPT/HCPCS: 76705 ==

== ENCOUNTER 2024-12-06 14:50 | Outpatient (AMB) | payer OTHER, SELFPAY ==
--- NOTE | 2024-12-06 14:52 | MHC.PC.OV ---
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 Accompanied by: Self / Same As Patient Allergies acetaminophen (From Tylox) Allergy (Severe, Verified 12/06/24 16:14) Hives almond Allergy (Severe, Verified 12/06/24 16:14) Hives oxycodone (From Tylox) Allergy (Severe, Verified 12/06/24 16:14) Hives lisinopril Adverse Reaction (Severe, Verified 12/06/24 16:14) Angioedema amlodipine Adverse Reaction (Intermediate, Verified 12/06/24 16:14) Chest Pain Medication List - Last Reconciled 12/06/24 by NORMA Hall- hydrochlorothiazide 25 mg PO DAILY valacyclovir 500 mg PO BID 3 days Tobacco use date assessed: 12/06/24 Dental Screening Dental Screen Date: 12/06/24 Did you have a dental visit in the last 12 months?: Yes Did you have a dental problem in the last 6 months where you did not have access to dental care?: No Was dental information given to patient?: Patient has dentist HPI PE HPI Details History of Present Illness The patient is a 49-year-old male presenting for a physical examination and preventative care. He denies experiencing any chest pain, dyspnea, abdominal pain, constipation, diarrhea, or any psychiatric symptoms such as suicidal or homicidal ideation. He maintains an active lifestyle, regularly attending the gym, and is focused on dietary improvements by increasing protein intake and reducing saturated fats. During the examination, bradycardia was noted ,(seen cardiology in the past) which has been observed in previous assessments. The patient is otherwise asymptomatic and continues to engage in regular physical activity. Preventative care measures include scheduling a repeat colonoscopy for April 2025, acknowledging the extended time required to secure an appointment. Laboratory tests, including PSA, will be added to the patient's workup, and he denies any urinary symptoms. Health Maintenance - Colonoscopy scheduled for April 2025 - Laboratory tests including PSA to be conducted Social History - Exercise: Regular gym activity - Nutrition: Increased protein intake, reduced saturated fats Review of Systems - Cardiovascular: Denies chest pain, dyspnea - Gastrointestinal: Denies abdominal pain, constipation, diarrhea - Psychiatric: Denies suicidal ideation, homicidal ideation - Genitourinary: Denies urinary issues Physical Exam General: Cooperative, healthy appearing, comfortable, no acute distress and well developed Orientation: Patient oriented x3 Limitations: No limitations Head: Normal to inspection Ears: Hearing grossly normal bilaterally Nose: Normal external nose present Face and sinus: Normal facial exam Eyes: Appearance normal, both eyes and all related structures Neck: Normal visual inspection and Yes full ROM Respiratory: Normal respiratory effort and able to speak in complete sentences. Clear to auscultation bilaterally Cardiovascular: Bradycardic. Normal S1 and S2 GI: Normal to inspection. Soft to palpation and nontender : Testicles without masses/lesions and no hernias appreciated Skin: No rashes or lesions noted Neuro: Patient oriented x3 Extremities: Normal to inspection Results Plan The patient will undergo a repeat colonoscopy scheduled for April 2025 to ensure timely preventative screening. Laboratory tests, including PSA, will be conducted to monitor his health status, given the absence of urinary symptoms. Discussion Notes I discussed with the patient the importance of scheduling a colonoscopy well in advance due to potential delays in securing an appointment. We also talked about adding laboratory tests, including PSA, to his workup to ensure comprehensive health monitoring. Patient Instructions - Schedule colonoscopy for April 2025. - Complete laboratory tests including PSA as discussed. PFSH Medical History Herpes simplex type 2 infection Alcohol abuse Anxiety Migraine without aura Obesity HTN (hypertension) Vestibular migraine GERD (gastroesophageal reflux disease) Dyslipidemia Sleep apnea Tobacco use Surgical History H/O colonoscopy History of surgery Family History Father Unknown family medical history Mother HTN (hypertension) Mental illness in member of household Social History Housing: Apartment Alcohol intake: never Patient Tobacco Use Status: Former Tobacco user Tobacco use type: Cigarette Cigarette Packs Per Day: 0.5 Cigarettes Per Day: 10.0 Years Smoked: 20 e-Cigarette/Vaping Use: Never Used Second Hand Smoke Exposure: No service: No Current occupational status: employed and unemployed Cognitive needs: No Hearing needs: No Vision needs: No Questionnaire PHQ-9 Over the last 2 weeks, how often have you been bothered by any of the following problems? 1. Little interest or pleasure in doing things: not at all 2. Feeling down, depressed, or hopeless: not at all 3. Trouble falling or staying asleep, or sleeping too much: not at all 4. Feeling tired or having little energy: not at all 5. Poor appetite or overeating: not at all 6. Feeling bad about yourself - or that you are a failure or have let yourself or your family down: not at all 7. Trouble concentrating on things, such as reading the newspaper or watching television: not at all 8. Moving or speaking so slowly that other people could have noticed. Or the opposite - being so fidgety or restless that you have been moving around a lot more than usual: not at all 9. Thoughts that you would be better off or of hurting yourself in some way: not at all Total score: 0 Depression Screening Interpretation: Negative Depression Screening Done: Yes 23819 - PHQ-9 Billing: Yes Source: Developed by Drs. Zack Pereira, Rosa Maria Baumann, Sheng Blackmon and colleagues, with an educational jason from [employer]. Thrive Questionnaire Date Thrive assessed: 05/07/24 I am a: Patient What is your living situation today?: I have a steady place to live Within the past 12 months, did the food you bought not last and you didn't have the money to get more?: Never true Within the past 12 months, did you worry whether your food would run out before you got money to buy more?: Sometimes True Do you have trouble paying for medicines?: Yes Do you have trouble getting transportation to medical appointments?: No Do you have trouble paying your heating and electricity bill?: No Do you have trouble taking care of your child, family member or friend?: No Do you have trouble with day-to-day activities such as bathing, preparing meals, shopping, managing finances, etc.?: No Are you currently unemployed and looking for a job?: Yes Are you interested in more education?: No Please select the resources that you would like help with: Housing/Intermediate, Food and Utilities Currently or been in a relationship where the following occur: I choose not to answer THRIVE Score: 1 AUDIT C Alcohol Use Questionnaire (AUDIT-C) 1. How often do you have a drink containing alcohol?: 2-4 times a month 2. How many drinks containing alcohol do you have on a typical day when you are drinking?: 1 or 2 3. How often do you have six or more drinks on one occasion?: Less than monthly Total Score: 3 Score Reviewed/Action Taken: Yes SREE-7 AMB Questionnaire SREE-7 Date SREE - 7 assessed: 12/06/24 Feeling nervous, anxious, or on edge: 1 = Several days Not being able to stop or control worryin = Several days Worrying too much about different things: 1 = Several days Trouble relaxin = Several days Being so restless that it is hard to sit still: 1 = Several days Becoming easily annoyed or irritable: 1 = Several days Feeling afraid as if something awful might happen: 0 = Not at all Total SREE-7 score (0-4 normal; 5-9 mild; 10-14 moderate; 15-21 severe): 6 Source: Developed by Drs. Zack Pereira, Rosa Maria Baumann, Sheng Blackmon and colleagues, with an educational jason from [employer]. SREE-7 Assessment Billing SREE-7 Assessment Tool: SREE-7 Assessment 84863 Physical exam (Primary Care) Vital Signs: Last Vital Signs Temp 98.4 F 12/06/24 15:06 Pulse 57 12/06/24 15:06 Resp 16 12/06/24 15:06 BP 128/78 12/06/24 15:06 Pulse Ox 96 12/06/24 15:06 Oxygen Delivery Method Room Air 12/06/24 15:06 BMI result Body Mass Index 33.9 Tobacco/Smoking Status: Tobacco use Status Tobacco use date assessed 12/06/24 12/06/24 15:13 Patient Tobacco Use Status Former Tobacco user 12/06/24 14:58 Tobacco use type Cigarette 12/06/24 14:58 e-Cigarette/Vaping Use Never Used 12/06/24 14:58 PHQ-9: PHQ-9 Score PHQ-9: Total score 0 12/06/24 15:13 Depression Screening Interpretation: Negative Thrive Assessment: Date of Thrive Assessment Date Thrive assessed 05/07/24 12/06/24 14:58 Currently or been in a relationship where the following occur: I choose not to answer Coding Level of Care Code Est Pt Prev Care 40-64y(55545) Diagnoses Physical exam Z00.00 Vitamin D deficiency E55.9 Tubular adenoma of colon D12.6 Screening for prostate cancer Z12.5 Additional Codes PHQ-9 - 50295 - PHQ-9 Billing: Yes ([id number]) SREE-7 Assessment Billing - SREE-7 Assessment Tool: SREE-7 Assessment 48775 ([id number]) Assessment & Plan Assessment & Plan (1) Physical exam: Code(s): Z00.00 - Encounter for general adult medical examination without abnormal findings Category: Medical (2) Vitamin D deficiency: Code(s): E55.9 - Vitamin D deficiency, unspecified Category: Medical (3) Tubular adenoma of colon: Code(s): D12.6 - Benign neoplasm of colon, unspecified Category: Medical (4) Screening for prostate cancer: Code(s): Z12.5 - Encounter for screening for malignant neoplasm of prostate Category: Medical Plan . Orders: Orders Complete Blood Count Auto Diff Today Z00.00 - Encounter for general adult medical examination without abnormal findings Comprehensive [place]. Panel Fast Today Z00.00 - Encounter for general adult medical examination without abnormal findings Lipid Panel Today Z00.00 - Encounter for general adult medical examination without abnormal findings Prostate Specific Antigen Scr Today Z12.5 - Encounter for screening for malignant neoplasm of prostate TSH reflex Free T4 Today Z00.00 - Encounter for general adult medical examination without abnormal findings UA CC w/rflx Micro + Cult Today Z00.00 - Encounter for general adult medical examination without abnormal findings Vitamin D 25-OH Total Today E55.9 - Vitamin D deficiency, unspecified, Z00.00 - Encounter for general adult medical examination without abnormal findings Referrals Gastroenterology Referral D12.6 - Benign neoplasm of colon, unspecified
[2024-12-06 15:06] VITALS: BP 128/78; PULSE 57; RESP 16; TEMP 36.9; O2SAT 96; BMI 33.9
--- OUTSIDE RECORDS SUMMARY | 2024-12-06 15:29 | XMS_ITS | Clinical Summary ---
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 Name Role Phone Dylan Roman NP Primary Care Provider [phone] Surgical History Surgery Date Site/Laterality Comments OTHER SURGICAL HISTORY PROCEDURE: [place] UNLISTED PROCEDURE PELVIS/HIP JOINT ESOPHAGOGASTRODUODENOSCOPY 01/13/2010 PROCEDURE: TN ESOPHAGOGASTRODUODENOSCOPY TRANSORAL DIAGNOSTIC; COMMENT: negative Family History [...] ars (1 of 2 - PCV) 1993 DTaP,Tdap,and Td Vaccines (2 - Td or Tdap) 05/20/2020 05/20/2010 Cholesterol Screening (Lipid Panel) 03/27/2022 Colorectal Cancer Screening: Colonoscopy 03/27/2022 HIV Screening 03/27/2022 Hepatitis C Screening 03/27/2022 Social Influencers of Health Screening 03/27/2022 COVID-19 Vaccine (1 - 2023-2 5 season) 2023 Zoster Vaccines (1 of 2) 2024 Depression Screening 04/25/2024 Influenza Vaccine (#1) 2024 HIB Vaccines Aged Out No longer [...] age to complete this topic Care Teams Grease Refining Supervisor Relationship Specialty Start Date End Date Dylan Roman NP [facility] - General 06/02/20
== END 2024-12-06 16:11 | disposition home or self-care (01) ==
LOC: HO.HMCC 14:51
PROVIDERS: PCP Nurse Practitioner Family; Visit Provider Nurse Practitioner Family
DX: Z00.00 Encounter for general adult medical examination without abnormal findings (principal); E55.9 Vitamin D deficiency, unspecified; D12.6 Benign neoplasm of colon, unspecified; Z12.5 Encounter for screening for malignant neoplasm of prostate

== ENCOUNTER → 2024-12-06 14:50 | Outpatient (BNVA) | payer OTHER, SELFPAY | PROVIDERS: PCP Nurse Practitioner Family; Visit Provider Nurse Practitioner Family | DX: Z00.00 Encounter for general adult medical examination without abnormal findings (principal); R00.1 Bradycardia, unspecified; E55.9 Vitamin D deficiency, unspecified; D12.6 Benign neoplasm of colon, unspecified | CPT/HCPCS: 96127; 99396 ==

== ENCOUNTER 2025-01-30 11:52 | Outpatient (AMB) | payer OTHER, SELFPAY ==
--- NOTE | 2025-01-30 11:58 | MHC.OFFVIS ---
Vital Signs 01/30/25 12:04 Height 6 ft Weight 244 lb 4.355 oz BMI 33.1 BP 138/76 Blood Pressure Location Rt brachial Position Sitting Pulse 52 Intake Visit Reasons: Repeat colonoscopy (04/2025) Intake Note: Minesh presents in office today for repeat colonoscopy consult. CC: Patient denies having any GI symptoms or concerns today. 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 He had a prior EGD about 10 years ago at [facility]. He denies any upper GI or bowels complaints. He has some trouble waking up from anesthesia in the past. He denies any cardiac problems, he has MARIO No ID problems. There is no FHX of CRC or polyps. (2) Sleep apnea: ?Code(s): G47.30 - Sleep apnea, unspecified ? ? ? Medications: New peg 3350-electrolytes 236-22.74-6.74 -5.86 gram (Golytely) ?? until fecal effluent is clear; do not exceed a total volume of 2,000 mL 240 mL? PO Q10M 1 day 4,000 mL 0RF Z12.11 - Encounter for screening for malignant neoplasm of colon COLONOSCOPY Findings: Terminal Ileum: Not evaluated Cecum:? Normal Ascending Colon:? Normal Transverse Colon:? A 3-4 mm sessile polyp - removed with a cold bx Descending Colon:? Normal Sigmoid Colon:? A 10 mm sessile polyp removed with a cold snare. Moderate diverticulosis Rectum:? Normal Ano-rectum:? Moderate internal hemorrhoids Colon preparation:? Good in the left colon and fair in the right and transverse colon due to a thin layer of adherent stool which could not be removed despite copious irrigation. No large lesions seen, and smaller polyps could be missed. Impression and Post Procedure Diagnosis: Colonoscopy Findings: Two small to medium sized polyps removed Moderate diverticulosis seen in the sigmoid colon Moderate hemorrhoids on retroflexed exam. Plan: Await pathology results Patient has an appointment on 05/25/22 in the GI Clinic with? Melissa Philip NP. Repeat Colonoscopy interval based on path results - in 3 years if polyps are adenomatous and due to suboptimal prep in the right and transverse colon (pt needs dulcolax two tab daily x 2 days prior to colon appt and an adult colonoscope for future colonoscopies). BIOPSY Received: 05/10/22 Diagnosis A.? Colon, transverse, polyp:? Tubular adenoma, completely excised; negative for high-grade dysplasia and carcinoma.? B.? Colon, sigmoid, polyp:? Tubular adenoma, completely excised; negative for high-grade dysplasia and carcinoma. [facility] Medical History Herpes simplex type 2 infection Alcohol abuse Anxiety Migraine without aura Obesity HTN (hypertension) Vestibular migraine GERD (gastroesophageal reflux disease) Dyslipidemia Sleep apnea Tobacco use Surgical History H/O colonoscopy History of surgery Family History Father Unknown family medical history Mother HTN (hypertension) Mental illness in member of household Social History Housing: Apartment Alcohol intake: never Patient Tobacco Use Status: Former Tobacco user Tobacco use type: Cigarette Cigarette Packs Per Day: 0.5 Cigarettes Per Day: 10.0 Years Smoked: 20 e-Cigarette/Vaping Use: Never Used Second Hand Smoke Exposure: No service: No Current occupational status: employed and unemployed Cognitive needs: No Hearing needs: No Vision needs: No Review of Systems Const Denies fatigue, Denies fever(s), Denies night sweats, Denies poor appetite and Denies weight loss ENT Reports Normal hearing present, Denies dental pain, Denies dysphagia, Denies hearing loss, Denies mouth pain, Denies odynophagia, Denies throat swelling, Denies tongue swelling and Reports other (Dentition adequate) Card Reports no additional complaints Resp Reports no additional complaints GI Details: Denies abdominal pain, Denies melena, Denies bloating, Denies hematochezia, Denies constipation, Denies GI cramping, Denies dysphagia, Denies excessive flatus, Denies early satiety, Denies heartburn, Denies diarrhea, Denies nausea, Denies odynophagia, Denies vomiting and Denies hematemesis Skin/Breast Denies pruritus, Denies lesions, Denies rash and Denies jaundice Neuro Reports Normal hearing present and Denies Abnormal speech present Endo Denies fatigue Aller/Immun Denies throat swelling and Denies tongue swelling Physical Exam Vital Signs: Last Vital Signs Pulse 52 01/30/25 12:04 BP 138/76 01/30/25 12:04 BMI result Body Mass Index 33.1 Const General: cooperative, no acute distress, well developed and well groomed Nutritional Appearance: well nourished and obese centrally obese Orientation/consciousness: oriented to person, oriented to place and oriented to time Limitations: No language barrier HEENT Head: Yes normocephalic and Yes atraumatic Eyes General: appearance normal, both eyes and all related structures Pupils: Equal, round and reactive pupils present Neck Neck: Yes normal visual inspection and Yes no lymphadenopathy Thyroid: Thyroid normal Resp Effort & Inspection: normal respiratory effort and able to speak in complete sentences Auscultation: clear to auscultation bilaterally Cardio Rate: regular rate Rhythm: regular rhythm Heart sounds: Normal, physiologic split S2 sound present Peripheral pulses: radial pulses present and posterior tibial pulses present GI Inspection: No distended, No Abdominal panniculus present and Yes obesity Palpation (GI): Soft to palpation, nontender, no guarding, not rigid and No hepatosplenomegaly present Percussion: Yes normal to percussion Auscultation: normal bowel sounds Rectal Exam - Male: Yes deferred Skin General skin exam: no rashes or lesions noted, turgor normal, skin not dry, no jaundice, No spider nevi and no striae Rashes: no rashes Nails: normal Neuro General: oriented to person, oriented to place and oriented to time Cranial nerves: Yes Equal, round and reactive pupils present and Yes Normal hearing present Speech: No Abnormal speech present Extrem General: Yes normal to inspection, No clubbing, No cyanosis and No edema Psych Appearance: grossly normal and well kempt Mental Status: mental status grossly normal Speech and movement: Normal speech and movement present Affect: normal affect Attitude: cooperative Thought process: Normal thought process present and not confabulating Thought content: Normal thought content present Insight: Good insight present (Psych) Judgement: Good judgement present (Psych) Assessment & Plan Assessment & Plan (1) Tubular adenoma of colon: Code(s): D12.6 - Benign neoplasm of colon, unspecified Category: Medical Plan He denies any upper GI or bowels complaints. He has some trouble waking up from anesthesia in the past. He denies any cardiac problems, he has MARIO No ID problems. There is no FHX of CRC or polyps. Orders: Orders Complete Blood Count Auto Diff Today D12.6 - Benign neoplasm of colon, unspecified Comprehensive Met. Panel Today D12.6 - Benign neoplasm of colon, unspecified Referrals GI Procedure Notification D12.6 - Benign neoplasm of colon, unspecified Medications: New peg 3350-electrolytes 236-22.74-6.74 -5.86 gram (Golytely) until fecal effluent is clear; do not exceed a total volume of 2,000 mL 240 mL PO Q10M 4,000 mL 0RF 1 day Z12.11 - Encounter for screening for malignant neoplasm of colon bisacodyl (Dulcolax (bisacodyl)) 10 mg (2 x 5 mg) PO BEDTIME 4 tabs 0RF 2 days Coding Level of Care Code New Pt Level 3 (50971) Diagnoses Tubular adenoma of colon D12.6
[2025-01-30 12:04] VITALS: BP 138/76; PULSE 52; BMI 33.1
== END 2025-01-30 12:55 | disposition home or self-care (01) ==
PROVIDERS: PCP Nurse Practitioner Family; Visit Provider Nurse Practitioner
DX: Z01.818 Encounter for other preprocedural examination (principal); Z12.11 Encounter for screening for malignant neoplasm of colon; Z86.0101 Personal history of adenomatous and serrated colon polyps
CPT/HCPCS: 99213

== ENCOUNTER → 2025-01-30 11:52 | Outpatient (BNVA) | payer OTHER, SELFPAY | PROVIDERS: PCP Nurse Practitioner Family; Visit Provider Nurse Practitioner | DX: Z01.818 Encounter for other preprocedural examination (principal); D12.6 Benign neoplasm of colon, unspecified; G47.33 Obstructive sleep apnea (adult) (pediatric) | CPT/HCPCS: 99212 ==

== ENCOUNTER 2025-02-27 10:03 | Outpatient (REF) | payer OTHER, SELFPAY ==
--- OUTSIDE RECORDS SUMMARY | 2025-02-27 11:33 | XMS_ITS | Data Portability ---
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 [email or web address] Not available 10/21/2023 09:28:32 Plan of Treatment [...] Flag Note LastModifiedBy Organization Detail LastModifiedTime 10/24/19 24 audio gram No observ ation record ed. [email or web address] Not Available 04/2023 16:00:25 12/14/19 24 06/17/2020 imagi ng/di agnos tic resul t No observ ation record ed. [email or web address] Not Available 03:52:48 Result Notes None recorded. Problems Name Problem SNOMED Code Status Onset Date Resolution Date Notes Provider Name and Address Organization Details Recorded Time Obstructi ve sleep apnea syndrome 22748463 Active 2016 Obstructi ve sleep apnea (adult) (pediatri c); Note: Date Diagnosed : 08/10/2016 5:51 PM (G47.33) Not Available [facility] 4 02:54:56 Insomnia with sleep apnea 73297747 Active 2016 Obstructi ve sleep apnea; Note: Date Diagnosed : 08/10/2016 5:50 PM (780.51) Not Available [facility] 4 02:54:54 Refractor y migraine 441144070 Active 2016 Other migraine, intractab le, without status migrainos us; Note: Date Diagnosed : 08/10/2016 5:52 PM (G43.819) Not Available [facility] 4 02:54:52 Vertigo of central origin NOS Active 2016 Vertigo of central origin, unspecifi ed ear; Note: Date Diagnosed : 08/10/2016 5:52 PM (H81.49) Not Available [facility] 4 02:54:51 Tobacco user 641904136 Active 2016 Tobacco use; Note: Date Diagnosed : 08/10/2016 5:59 PM (Z72.0) Not Available [facility] 4 02:54:55 Abnormal auditory perceptio n 92819607 Active 2020 Other abnormal auditory perceptio ns, bilateral ; Note: Date Diagnosed : 06/17/2020 5:31 PM (H93.293) Not Available [facility] 4 02:54:52 Bilateral tinnitus 96427204893 02 Active 2020 Tinnitus, bilateral ; Note: Date Diagnosed : 06/17/2020 5:31 PM (H93.13) Not Available [facility] 4 02:54:54 Marijuana user 257324837 Active 2023 SHERIE APODACA MD [address] [facility] [place] [address], [place], [address] , [facility] - [facility] 4 09:27:08 Bilateral referred otalgia of ears 82225050667 41987 Active 2023 SHERIE APODACA MD 100 [facility],[place] [address], [place], [place], [address] , [facility] - [facility] [place] 4 09:27:28 Pain of temporoma ndibular joint 67398809 Active 2023 SHERIE APODACA MD [address] [facility],[place] [address], [place], [address] , [facility] [place] 4 09:27:37 Localized masticato ry muscle soreness 615167090 Active 2023 SHERIE APODACA MD [address] [facility],[place] [address], [place], [address] , [facility] [place] 4 10:18:15 Problem Notes None recorded. Procedures Surgical History Date Name Laterality Status Provider Name and Address Organization Details Recorded Time 10/21/2023 Air & Speech Audio with Tymps - 82590, 25051 & 94091 completed IFEANYI POWER MA, CCC-A [address] [facility],[place] [address], [place], [address], [facility] [place] 10/21/2023 10:01:06 Imaging Results None recorded. Procedure Notes None recorded. Medical Equipment None Reported. Medications Name Sig Start Date Stop Date Status Note LastModified by Organization Details LastModified Time cyclobenz aprine 10 mg tablet PLEASE SEE ATTACHED FOR DETAILED DIRECTIO NS active Not Available Not Available No t Available lisinopri l 10 mg tablet active Medicati on ID: [id number] B rand Name: lisinopr il Send Method: E-Prescr ibed Sub s Allowed: subs OK Medic ationGen ericName : lisinopr il Not Available Not Available Not Available lisinopri l 5 mg tablet 06/17 completed Medicati on ID: [id number] D uration Value: 30 Brand Name: lisinopr [...] tion aerosol inhaler active Medicati on ID: [id number] B rand Name: ProAir HFA Send Method: [...] Updated DateTime 10/21/2023 182.88 cm 33.8 kg/m2 925967.5 g Maria Luisa Pacheco [place] - [facility] 10/21/2023 09:02:29 Social History Question Answer Notes LastModified by Organizat ion Details LastModified Time Tobacco Smoking Status Former Smoker SHERIE APODACA MD [address] [place] [address], [phone], [facility] - [facility] 10/21/2023 09:18:27 Which Illicit Or Recreational Drugs Have You Used? Marijuana, 1 Joint A Day [email or web address] Information not available 10/21/2023 When Did You Quit Smoking? 1-5yearssin celastcigar ette [email or web address] Information not available 10/21/2023 Sex: Unknown Functional Status Question Answer Note LastModified by Organizat ion Details LastModified Time Do you use any illicit or recreational drugs? Yes Information not available 10/21/2023 Mental Status None recorded. Family History Nothing Reported. Medical History No medical history recorded. Past Encounters Encounter ID Performer Location Encounter Start Date Encounter Closed Date Diagnosis/Indication Diagnosis SNOMED-CT Code Diagnosis ICD10 Code Diagnosis IMO Codes Diagnosis Note [id number] SHERIE APODACA MD [facility] [address] [address] 10/21/2023 08:44:23 10/21/2023 10:18:55 Abnormal auditory perception 24064424 H93.293 For both ears, normal hearing with excellent speech clarity. Type A tympanogra m for both ears. Marijuana user 880177664 F12.90 Bilateral referred otalgia of ears 2741004631 392903 H92.03 Pain of temporomandibular joint 80147684 M26.629 Localized masticatory muscle soreness 819482866 M79.10 Health Concerns Section Related Observation LastModified by Organization Detai ls LastModified Time None Recorded Concern Status LastModified by Organization Details LastModified Time None Recorded Advance Directives Directive None Recorded Payers Insurance Date Sequence Insurance Name Policy Number Policy Espino Covered Member ID Espino Member ID Guarantor Name 01/03/2024 1 [facility] NET PLAN (MEDICAID HMO) NANCY Casper [id number] Minesh Casper Notes Date Note Type Note [...] pattern of his symptoms. SHERIE APODACA MD [address] [place] [address], [place], [address], [facility] - [facility] 10/21/2023 10:18:52
[2025-02-27 13:22] LABS: Appearance Urine Clear; Glucose Urine UA Negative (Negative); PH 6.0 (5.0-9.0); Specific Gravity - Urine 1.020 (1.005-1.025)
[2025-02-27 13:31] LABS: MANUAL DIFF FLAG NO
[2025-02-27 13:40] LABS: Hematocrit 46.3 % (42.0-52.0); Hemoglobin 15.0 g/dl (14.0-18.0); Imm Gran Abs Auto 0.02 X10*3/uL (0.00-0.03); Imm Gran Pct Auto 0.3 % (0.0-0.4); Lymphocytes Absolute Auto 1.8 X10*3/uL (1.2-4.9); Mean Corpuscular HGB Conc 32.4 g/dl (31.0-36.0); Mean Corpuscular Hemoglobin 27.0 pg (27.0-33.0); Mean Corpuscular Volume 83.4 fL (80.0-98.0); NRBC Abs Auto 0.000 X10*3/uL (0.0-0.012); NRBC Pct Auto 0.0 /100WBC (0.0-0.2); Platelet Count 295 X10*3/uL (160-400); Red Blood Count 5.55 X10*6/uL (4.60-5.80); White Blood Count 6.9 X10*3/uL (4.8-10.8)
[2025-02-27 13:51] LABS: Alanine Aminotransferase 46 U/L (0-40); Albumin Level 4.3 g/dL (3.5-5.0); Alkaline Phosphatase 69 U/L (39-117); Anion Gap 11 (12-20); Aspartate Amino Transferase 42 U/L (5-37); Blood Urea Nitrogen 12 mg/dL (9-16); Calcium 9.0 mg/dL (8.4-10.2); Carbon Dioxide 28 mmol/L (22-29); Chloride 104 mmol/L (96-108); Cholesterol 140 mg/dL (<200); Estimated Glomerular Filt Rate > 60; HDL Cholesterol 39 mg/dL (>40); Potassium 3.5 mmol/L (3.3-5.1); Sodium 139 mmol/L (135-145); Total Protein 7.5 g/dL (6.5-8.0); Triglycerides 63 mg/dL (<150)
== END 2025-02-27 10:04 | disposition home or self-care (01) ==
LOC: HO.HMGCLDS 10:03
PROVIDERS: Absent Provider Nurse Practitioner; PCP Nurse Practitioner Family; Visit Provider Nurse Practitioner Family
DX: Z00.00 Encounter for general adult medical examination without abnormal findings (principal); Z12.5 Encounter for screening for malignant neoplasm of prostate; D12.6 Benign neoplasm of colon, unspecified; E55.9 Vitamin D deficiency, unspecified
CPT/HCPCS: 36415; 80053; 80061; 81003; 82306; 84153; 84443; 85025